=== PATIENT | male | born 1965 | race Caucasian/White ===

== ENCOUNTER 2022-05-21 11:15 | Inpatient (IN) ==
[2022-05-21] MEDS ORDERED: VANCOMYCIN CONSULT ACTIVE PRN ×2 (11:55→17:21)
[2022-05-21] MEDS ORDERED: VANCOMYCIN HCL 1,500 MG in SODIUM CHLORIDE 0.9% 500 ML IV STA (11:55)
[2022-05-21] MEDS ORDERED: CEFEPIME 2,000 MG/20 ML VIAL IV STA (11:55)
[2022-05-21] MEDS ORDERED: ACETAMINOPHEN 1,000 MG/100 ML VIAL IV STA (11:55)
[2022-05-21] MEDS ORDERED: SODIUM CHLORIDE 0.9% 1000ML 500 ML IV SCH (12:00)
--- NOTE | 2022-05-21 12:00 | Emergency Department Note ---
History of Present Illness General Chief complaint: Infection Stated complaint: CELLULITOUS IN LEG Time Seen by Provider: 05/21/22 11:49 History of Present Illness Maximum Pain Intensity: 7 This is a 56-year-old type I diabetic with history of hypertension as well as cardiac stent placement the presents to the emergency department referred by local urgent care accompanied by with complaints of "cellulitis in right leg". The patient notes intermittent fevers over the past week. notes that since this past Saturday his right lower extremity has been quite erythematous predominantly on the foot. No known trauma or injury. Patient has neuropathy at baseline with poor sensation from the knees distal in the bilateral lower extremities. Patient denies any chest pain or shortness of breath. No nausea or vomiting. Patient is unaware of any breaks in the integument to the right lower extremity causing the infection today. While at urgent care he did receive what he believes is IM ceftriaxone and then referred emergently here. Current pain 08/27. Patient is from the [facility] and currently visiting [id number] to celebrate his 89th birthday. Home Medications Medication Instructions Recorded Confirmed Type albuterol sulfate 2.5 mg/3 mL 2.5 mg inhalation Q4H PRN Wheezing 05/21/2205/21 History (0.083 %) solution for nebulization albuterol sulfate 90 mcg/actuation 2 puff inhalation DIRECTED PRN 05/21/22 05/21/22 History aerosol inhaler Shortness Of Breath Or Wheezing aspirin 81 mg tablet,delayed 81 mg PO DAILY 05/21/22 05/21/22 History release carvedilol 3.125 mg tablet 6.25 mg PO BID 05/21/22 05/21/22 History doxycycline hyclate 100 mg capsule 100 mg PO DAILY 05/21/22 05/21/22 History ergocalciferol (vitamin D2) 1,250 50,000 unit PO WK 05/21/22 05/21/22 History mcg (50,000 unit) capsule insulin aspart U-100 100 unit/mL 6 - 9 unit subcut TIDM 05/21/22 05/21/22 History (3 mL) subcutaneous pen (Novolog FlexPen U-100 Insulin aspart) insulin glargine 100 unit/mL (3 21 unit subcut PM 05/21/22 05/21/22 History mL) subcutaneous pen (Basaglar KwikPen U-100 Insulin) losartan 50 mg tablet 50 mg PO DAILY 05/21/22 05/21/22 History nitroglycerin 0.4 mg sublingual 0.4 mg sublingual DIRECTED PRN 05/21/22 05/21/22 History tablet Chest Pain prasugrel 10 mg tablet 10 mg PO DAILY 05/21/22 05/21/22 History sacubitril 49 mg-valsartan 51 mg 1 tab PO DAILY 05/21/22 05/21/22 History tablet (Entresto) Allergies Allergy/AdvReac Type Severity Reaction Status Date / Time atorvastatin AdvReac Unknown CONTRAINDICATED Verified 05/21/22 14:27 WITH OTHER MEDICATION empagliflozin AdvReac Unknown CONTRAINDICATED Verified 05/21/22 14:27 [From Jardiance] FOR TYPE I DIABETICS Past Med/Surg History Medical History Cellulitis HLD (hyperlipidemia) Hypertension Sepsis Type 1 diabetes mellitus Surgical History Hx of heart artery stent Social History Smoking Status: Never smoker Second Hand Exposure: No; Do You Dip or Chew Tobacco: Yes; Tobacco Cessation Education Requested by Patient: No Hx Alcohol Use: Yes Hx Substance Use: No Preferred Language: Pashto Communication Ability: Effective Thread Spooler Required: No Beliefs That Will Affect Care: None Current Living Situation: Spouse Other Information That Helps Us Care for You: No Feels Safe at Home: Yes Assistive Devices: Cane Review of Systems A total of 10 systems reviewed and were otherwise negative Physical Exam Vital Signs Vital Signs - 24 hr 05/21/22 11:27 05/21/22 12:01 05/21/22 12:06 Temperature 38.5 C H Temperature Source Temporal Artery Scan Pulse Rate 107 H 101 H Pulse Rate [Apical] Pulse Rate from SpO2 Sensor Pulse Rhythm [Apical] Respiratory Rate 18 Blood Pressure 97/55 L Blood Pressure [Right Arm] Blood Pressure Mean 69 Blood Pressure Mean [Right Arm] Blood Pressure Position [Right Arm] Pulse Oximetry 100 93 Oxygen Delivery Method Room Air Room Air Sepsis Recent Fever Within 48 Hours Yes Sepsis New/Unexplained Change in Mental Status No Sepsis Action Taken by Nursing No Action Required 05/21/22 12:09 05/21/22 12:50 05/21/22 12:01 Temperature 37.9 C H 37.5 C Temperature Source Oral Oral Pulse Rate 102 H Pulse Rate [Apical] 102 H 95 H Pulse Rate from SpO2 Sensor 104 H Pulse Rhythm [Apical] Regular Respiratory Rate 20 18 24 Blood Pressure 131/57 L Blood Pressure [Right Arm] 131/57 L 117/60 Blood Pressure Mean 81 Blood Pressure Mean [Right Arm] 81 79 Blood Pressure Position [Right Arm] Sitting Lying Pulse Oximetry 97 97 96 Oxygen Delivery Method Room Air Room Air Room Air Sepsis Recent Fever Within 48 Hours Sepsis New/Unexplained Change in Mental Status Sepsis Action Taken by Nursing 05/21/22 12:48 05/21/22 13:00 05/21/22 13:00 Temperature Temperature Source Pulse Rate 94 H 94 H Pulse Rate [Apical] Pulse Rate from SpO2 Sensor 92 H 93 H Pulse Rhythm [Apical] Respiratory Rate 22 22 Blood Pressure 117/60 114/59 L Blood Pressure [Right Arm] Blood Pressure Mean 79 77 Blood Pressure Mean [Right Arm] Blood Pressure Position [Right Arm] Pulse Oximetry 98 96 Oxygen Delivery Method Room Air Sepsis Recent Fever Within 48 Hours Sepsis New/Unexplained Change in Mental Status Sepsis Action Taken by Nursing 05/21/22 13:30 05/21/22 13:30 05/21/22 14:00 Temperature Temperature Source Pulse Rate 96 H Pulse Rate [Apical] Pulse Rate from SpO2 Sensor 95 H Pulse Rhythm [Apical] Respiratory Rate 20 Blood Pressure 116/62 114/62 Blood Pressure [Right Arm] Blood Pressure Mean 80 79 Blood Pressure Mean [Right Arm] Blood Pressure Position [Right Arm] Pulse Oximetry 95 Oxygen Delivery Method Sepsis Recent Fever Within 48 Hours Sepsis New/Unexplained Change in Mental Status Sepsis Action Taken by Nursing 05/21/22 14:00 05/21/22 14:30 05/21/22 14:30 Temperature Temperature Source Pulse Rate 88 90 Pulse Rate [Apical] Pulse Rate from SpO2 Sensor 87 88 Pulse Rhythm [Apical] Respiratory Rate 22 20 Blood Pressure 111/56 L Blood Pressure [Right Arm] Blood Pressure Mean 74 Blood Pressure Mean [Right Arm] Blood Pressure Position [Right Arm] Pulse Oximetry 98 98 Oxygen Delivery Method Room Air Room Air Sepsis Recent Fever Within 48 Hours Sepsis New/Unexplained Change in Mental Status Sepsis Action Taken by Nursing VITAL SIGNS - Vital signs and triage nursing notes were reviewed. Hypotensive, tachycardic, febrile. GENERAL -56-year-old male appearing his stated age who is in no acute distress. Communicates well with provider and answers questions appropriately. SKIN - Without rashes. No meningeal or petechial rash. HEAD - NC/AT. EYES - PERRL with EOMI bilaterally. Sclera anicteric. EARS - No deformities of external structures noted on gross examination bilaterally. NOSE - Midline and without cyanosis. No epistaxis or purulent drainage noted. MOUTH/OROPHARYNX - Without perioral cyanosis. NECK - Neck with FROM.No nuchal rigidity. LUNGS - Chest wall symmetric without accessory muscle use, intercostals retractions, or central cyanosis. Normal vesicular breath sounds CTA B/L. No wh eezes, rales, or rhonchi appreciated. CARDIAC -tachycardic and regular with S1/S2. No murmur, rubs, or gallops appreciated. ABDOMEN - Abdominal contour normal without pulsations or visible masses. BS normoactive all four quadrants. No tenderness, palpable masses, hepatosplenomegaly, or ascites noted. EXTREMITIES - No clubbing or peripheral cyanosis. Left lower extremity appropriately warm and well-perfused without deficit. No signs of infection. No erythema or edema. Right lower extremity from the proximal tib/fib region tracking distally into the foot and toes there is significant erythema and profound circumferential edema to the right foot with yellowish bullae formation overlying the mid plantar aspect of the right foot. Small 2 cm in diameter darkish blister formation to the medial MTP joint region. Decreased sensation to the bilateral lower extremities. NEUROLOGIC - Cranial nerves II through XII grossly intact. PSYCH - A&Ox3 and cooperates fully with examiner. Pt is very pleasant and interacts well with examiner. Course Administered Medications Carvedilol (Carvedilol 6.25 Mg Tab) 6.25 mg PO BID DEVONTE Stop: 06/20/22 20:59 Last Admin: 05/21/22 20:26 Dose: 6.25 mg Documented By: [id number] Heparin Sodium (Porcine) (Heparin Sod 5,000 Unit/0.5 Ml Vial) 5,000 units SQ Q12 DEVONTE Stop: 06/20/22 20:59 Last Admin: 05/21/22 20:25 Dose: 5,000 units Documented By: [id number] Sodium Chloride (Nss 1000ml) 1,000 mls @ 60 mls/hr IV .[id number] DEVONTE Stop: 05/23/22 01:43 Last Admin: 05/21/22 17:23 Dose: 60 mls/hr Documented By: SABA Insulin Aspart (Insulin Aspart Per Unit Charge) 0 units SC ACHS DEVONTE Stop: 06/20/22 16:59 Last Admin: 05/21/22 21:07 Dose: 6 units Documented By: [id number] Co-signed By: ILIANA Admin: 05/21/22 17:55 Dose: 8 units Documented By: SABA Co-signed By: MICH Discontinued Medications Fentanyl Citrate (Fentanyl Citrate Pf 100 Mcg/2 Ml Vial) 50 mcg IV NOW STA Stop: 05/21/22 14:03 Last Admin: 05/21/22 14:12 Dose: 50 mcg Documented By: JESU Vancomycin HCl 1,500 mg/ (Sodium Chloride) 530 mls @ 200 mls/hr IV NOW STA Stop: 05/21/22 14:33 Last Infusion: 05/21/22 15:40 Dose: 0 mls/hr Documented By: Admin: 05/21/22 12:49 Dose: 200 mls/hr Documented By: EJSU Cefepime HCl (Maxipime) 2,000 mg in 20 mls @ 5 mls/min IV NOW STA; Protocol Stop: 05/21/22 11:58 Last Admin: 05/21/22 12:47 Dose: 5 mls/min Documented By: JESU Acetaminophen (Ofirmev) 1,000 mg in 100 mls @ 400 mls/hr IV NOW STA Stop: 05/21/22 12:09 Last Infusion: 05/21/22 12:51 Dose: 0 mls/hr Documented By: Admin: 05/21/22 12:19 Dose: 400 mls/hr Documented By: JESU Sodium Chloride (Nss 1000ml) 1,000 mls @ 999 mls/hr IV .Q1H1M DEVONTE Stop: 05/21/22 14:00 Last Infusion: 05/21/22 15:39 Dose: 0 mls/hr Documented By: Admin: 05/21/22 13:46 Dose: 999 mls/hr Documented By: Infusion: 05/21/22 13:32 Dose: 0 mls/hr Documented By: Admin: 05/21/22 12:19 Dose: 999 mls/hr Documented By: JESU Sodium Chloride (Nss 1000ml) 500 mls @ 999 mls/hr IV .Q31M DEVONTE Stop: 05/21/22 12:30 Last Infusion: 05/21/22 13:32 Dose: 0 mls/hr Documented By: Admin: 05/21/22 12:49 Dose: 999 mls/hr Documented By: JESU Insulin Glargine (Lantus Per Unit Charge) 15 units SQ NOW ONE Stop: 05/21/22 17:16 Last Admin: 05/21/22 17:55 Dose: 15 units Documented By: SABA Co-signed By: MICH Critical Care Time I have personally spent about 45 minutes of critical care time in the direct management of this patient. This includes bedside care, interpretation of diagnostic studies, and testing, discussion with consultants, patient, and family members, and other required patient management activities. This 45 minutes is in excess of all separately billable procedures. Medical Decision Making Laboratory Data 05/21/22 11:43 05/21/22 11:43 Lab Results 05/21/22 05/21/22 05/21/22 Range/Units 11:43 11:43 11:43 WBC 20.86 H (4.8-10.8) K/ul RBC 3.75 L (4.70-6.10) M/uL Hgb 9.4 L (14.0-18.0) g/dl Hct 29.2 L (42.0-52.0) % MCV 77.9 L (80.0-100.0) fL MCH 25.1 (25.0-34.0) pg MCHC 32.2 (32.0-36.0) g/dL RDW Std Deviation 41.5 (36.4-46.3) fL RDW Coeff of Bianca 14.6 H (11.5-14.5) % Plt Count 407 H (130-400) K/uL MPV 10.3 (9.4-12.4) fL Immature Gran % (Auto) 1.3 % Neut % (Auto) 93.2 % Lymph % (Auto) 2.0 % [place] % (Auto) 3.2 % Eos % (Auto) 0.1 % Baso % (Auto) 0.2 % Neut # (Auto) 19.45 H (1.40-6.50) K/uL Lymph # (Auto) 0.41 L (1.2-3.4) K/uL [place] # (Auto) 0.66 H (0.11-0.59) K/uL Eos # (Auto) 0.02 (0-0.50) K/uL Baso # (Auto) 0.05 (0-0.2) K/uL Immature Gran # (Auto) 0.27 H (0.01-0.20) K/uL Toxic Granulation 1+ Dohle Bodies 1+ Acanthocytes (Spur) 1+ ESR (0-20) mm/hr PT 12.8 H (9.0-12.0) Seconds INR 1.2 H (0.9-1.1) APTT 29.3 (21.0-31.0) Seconds PTT Ratio 1.1 VBG pH (7.36-7.41) VBG pCO2 (38-50) mmHg VBG pO2 mmHg VBG HCO3 mmol/L VBG O2 Saturation % VBG Base Excess mEq/L Sodium 131 L (136-145) mmol/L Potassium 3.8 (3.5-5.1) mmol/L Chloride 97 L (98-107) mmol/L Carbon Dioxide 21 (21-32) mmol/L Anion Gap 13 H (3-11) BUN 45 H (6-23) mg/dl Creatinine 2.36 H (0.6-1.4) mg/dl Est Cr Clr Drug Dosing 34.6 ml/min Est GFR ( Amer) 34.1 ml/min Est GFR (Non-Af Amer) 29.5 ml/min BUN/Creatinine Ratio 19.1 (10-20) Glucose 203 H (70-99(Fasting)) mg/dl Lactate (0.4-2.0) mmol/L Uric Acid 8.1 H (2.6-7.2) mg/dl Calcium 8.3 L (8.6-10.3) mg/dl Magnesium 1.8 (1.7-2.4) mg/dl Total Bilirubin 0.6 (0.2-1.0) mg/dl Direct Bilirubin 0.3 H (0-0.2) mg/dl AST 66 H (13-39) U/L ALT 85 H (7-52) U/L Alkaline Phosphatase 396 H (34-104) U/L Troponin I High Sens 108.1 H* (0-20) pg/ml C-Reactive Protein 31.43 H (0-0.5) mg/dl Total Protein 7.5 (6.0-8.3) gm/dl Albumin 3.0 L (3.4-5.0) gm/dl Procalcitonin (0-0.5) ng/ml SARS-CoV-2 (PCR) (Negative) Influenza Type A (PCR) (Neg) Influenza Type B (PCR) (Neg) RSV (RT-PCR) (Neg) Blood Type Antibody Screen 05/21/22 05/21/22 05/21/22 Range/Units 11:43 11:43 11:45 WBC (4.8-10.8) K/ul RBC (4.70-6.10) M/uL Hgb (14.0-18.0) g/dl Hct (42.0-52.0) % MCV (80.0-100.0) fL MCH (25.0-34.0) pg MCHC (32.0-36.0) g/dL RDW Std Deviation (36.4-46.3) fL RDW Coeff of Bianca (11.5-14.5) % Plt Count (130-400) K/uL MPV (9.4-12.4) fL Immature Gran % (Auto) % Neut % (Auto) % Lymph % (Auto) % [place] % (Auto) % Eos % (Auto) % Baso % (Auto) % Neut # (Auto) (1.40-6.50) K/uL Lymph # (Auto) (1.2-3.4) K/uL [place] # (Auto) (0.11-0.59) K/uL Eos # (Auto) (0-0.50) K/uL Baso # (Auto) (0-0.2) K/uL Immature Gran # (Auto) (0.01-0.20) K/uL Toxic Granulation Dohle Bodies Acanthocytes (Spur) ESR 91 H (0-20) mm/hr PT (9.0-12.0) Seconds INR (0.9-1.1) APTT (21.0-31.0) Seconds PTT Ratio VBG pH (7.36-7.41) VBG pCO2 (38-50) mmHg VBG pO2 mmHg VBG HCO3 mmol/L VBG O2 Saturation % VBG Base Excess mEq/L Sodium (136-145) mmol/L Potassium (3.5-5.1) mmol/L Chloride (98-107) mmol/L Carbon Dioxide (21-32) mmol/L Anion Gap (3-11) BUN (6-23) mg/dl Creatinine (0.6-1.4) mg/dl Est Cr Clr Drug Dosing ml/min Est GFR ( Amer) ml/min Est GFR (Non-Af Amer) ml/min BUN/Creatinine Ratio (10-20) Glucose (70-99(Fasting)) mg/dl Lactate 3.2 H* (0.4-2.0) mmol/L Uric Acid (2.6-7.2) mg/dl Calcium (8.6-10.3) mg/dl Magnesium (1.7-2.4) mg/dl Total Bilirubin (0.2-1.0) mg/dl Direct Bilirubin (0-0.2) mg/dl AST (13-39) U/L ALT (7-52) U/L Alkaline Phosphatase (34-104) U/L Troponin I High Sens (0-20) pg/ml C-Reactive Protein (0-0.5) mg/dl Total Protein (6.0-8.3) gm/dl Albumin (3.4-5.0) gm/dl Procalcitonin 4.59 H (0-0.5) ng/ml SARS-CoV-2 (PCR) (Negative) Influenza Type A (PCR) (Neg) Influenza Type B (PCR) (Neg) RSV (RT-PCR) (Neg) Blood Type Antibody Screen 05/21/22 05/21/22 05/21/22 Range/Units 12:12 12:12 12:52 WBC (4.8-10.8) K/ul RBC (4.70-6.10) M/uL Hgb (14.0-18.0) g/dl Hct (42.0-52.0) % MCV (80.0-100.0) fL MCH (25.0-34.0) pg MCHC (32.0-36.0) g/dL RDW Std Deviation (36.4-46.3) fL RDW Coeff of Bianca (11.5-14.5) % Plt Count (130-400) K/uL MPV (9.4-12.4) fL Immature Gran % (Auto) % Neut % (Auto) % Lymph % (Auto) % [place] % (Auto) % Eos % (Auto) % Baso % (Auto) % Neut # (Auto) (1.40-6.50) K/uL Lymph # (Auto) (1.2-3.4) K/uL [place] # (Auto) (0.11-0.59) K/uL Eos # (Auto) (0-0.50) K/uL Baso # (Auto) (0-0.2) K/uL Immature Gran # (Auto) (0.01-0.20) K/uL Toxic Granulation Dohle Bodies Acanthocytes (Spur) ESR (0-20) mm/hr PT (9.0-12.0) Seconds INR (0.9-1.1) APTT (21.0-31.0) Seconds PTT Ratio VBG pH 7.38 (7.36-7.41) VBG pCO2 38 (38-50) mmHg VBG pO2 21 mmHg VBG HCO3 23 mmol/L VBG O2 Saturation < 60.0 % VBG Base Excess -2.4 mEq/L Sodium (136-145) mmol/L Potassium (3.5-5.1) mmol/L Chloride (98-107) mmol/L Carbon Dioxide (21-32) mmol/L Anion Gap (3-11) BUN (6-23) mg/dl Creatinine (0.6-1.4) mg/dl Est Cr Clr Drug Dosing ml/min Est GFR ( Amer) ml/min Est GFR (Non-Af Amer) ml/min BUN/Creatinine Ratio (10-20) Glucose (70-99(Fasting)) mg/dl Lactate (0.4-2.0) mmol/L Uric Acid (2.6-7.2) mg/dl Calcium (8.6-10.3) mg/dl Magnesium (1.7-2.4) mg/dl Total Bilirubin (0.2-1.0) mg/dl Direct Bilirubin (0-0.2) mg/dl AST (13-39) U/L ALT (7-52) U/L Alkaline Phosphatase (34-104) U/L Troponin I High Sens (0-20) pg/ml C-Reactive Protein (0-0.5) mg/dl Total Protein (6.0-8.3) gm/dl Albumin (3.4-5.0) gm/dl Procalcitonin (0-0.5) ng/ml SARS-CoV-2 (PCR) NEGATIVE (Negative) Influenza Type A (PCR) Negative (Neg) Influenza Type B (PCR) Negative (Neg) RSV (RT-PCR) Negative (Neg) Blood Type B Positive Antibody Screen NEGATIVE Imaging Data Radiologist's Impression: Chest X-Ray 05/21/22 11:56 XR chest 1V portable CLINICAL HISTORY: Sepsis. COMPARISON STUDY: No previous studies for comparison. FINDINGS: There is no pneumothorax or pleural effusion. There is no consolidation to suggest pneumonia. Moderate cardiomegaly is noted. No evidence for pulmonary edema. IMPRESSION: No acute cardiopulmonary findings. Cardiomegaly. ACT 112: Negative or not required by law. Electronically signed by: Matthew Conley M.D. 05/21/2022 1:[address] 05/21/22 12:04 CT foot RT wo con HISTORY: 56 years-old Male Sepsis, infected RLE acute sepsis with pain of the right lower extremity COMPARISON: CT right ankle, tibia and fibula studies of same day TECHNIQUE: Multiple axial CT images of the right foot were obtained without the use of IV contrast. A dose lowering technique was used consistent with the principals of ALARA. FINDINGS: Moderate diffuse subcutaneous edema. Arterial calcifications. There is at least mild atrophy of the intrinsic musculature. Tendons and ligaments are suboptimally evaluated by CT technique. No gross ligamentous or tendinous injury identified. No drainable fluid collection. Enthesophytes of the calcaneus. Demineralized appearance of the bones. No acute fracture, dislocation or osseous erosion. The distal toes only partially imaged on the axial series. Multifocal osteoarthritis, moderate within the midfoot. Midfoot alignment is anatomic. IMPRESSION: 1. No acute osseous abnormality. 2. Moderate diffuse subcutaneous edema without drainable fluid collection. Find ings may represent cellulitis, lymphedema or venous stasis. ACT 112: Negative or not required by law. The above report was generated using voice recognition software. It may contain grammatical, syntax or spelling errors. Electronically signed by: Iván Ochoa M.D. 05/21/2022 2:[address] 05/21/22 12:04 CT SCAN OF THE RIGHT ANKLE WITHOUT IV CONTRAST CLINICAL HISTORY: Sepsis. Right foot infection. COMPARISON STUDY: No priors. TECHNIQUE: CT scan of the right ankle performed from the distal tibia and fibula to the base of the foot. Images are reviewed in the axial, sagittal, and coronal planes. IV contrast was not administered for this examination. A dose lowering technique was utilized adhering to the principles of ALARA. No definitive interpretation is suboptimal without plain film correlate. FINDINGS: The skeletal structures are heterogeneously osteopenic. No fracture is identified. Mild arthritic change is noted in the partially visualized midfoot. There is no bony erosion or periostitis. The ankle mortise is intact. No new degenerative change at the tibiotalar articulation. There is a dorsal calcaneal enthesophyte. No ankle joint effusion is identified. No lytic or blastic lesion is seen. Imaged portions of the Achilles tendon appear intact. Soft tissue edema and subcutaneous fluid is seen around the right ankle and in the visualized hindfoot. No organized/drainable fluid collection is seen to indicate abscess on these unenhanced images. There is atherosclerotic calcification of the regional arteries. The regional musculature is atrophic. No soft tissue gas is seen. IMPRESSION: 1. No acute bony abnormality is identified. 2. Soft tissue edema throughout the visualized right lower extremity is typical for cellulitis. Correlate clinically. 3. No organized fluid collection is seen to indicate abscess. 4. No soft tissue gas is seen. ACT 112: Negative or not required by law. Dictated: 05/21/2022 1:08 PM Transcribed: 05/21/2022 1:21 PM Hermes [id number] [facility] [id number] Electronically signed by: Ayush Christopher M.D. 05/21/2022 1:[address] 05/21/22 12:05 CT OF THE RIGHT TIBIA AND FIBULA WITHOUT CONTRAST CLINICAL HISTORY: Sepsis, infected RLE. COMPARISON STUDY: No previous studies for comparison. TECHNIQUE: Axial images of the right tibia and fibula/right lower leg were obtained without IV contrast. Sagittal and coronal reconstructions were viewed. Automated exposure control was utilized for the study. A dose lowering technique was utilized adhering to the principles of ALARA. FINDINGS: Please note that the CTs of the right ankle and foot will be reported separately. There is no fracture within the right tibia or fibula. No CT evidence for acute osteomyelitis. Note is made of skin thickening and subcutaneous edema of the right lower leg, most pronounced medially. No associated fluid collection is identified on this unenhanced exam. No soft tissue gas. There is no significant fascial fluid. No intramuscular fluid collection is identified on unenhanced exam. There is extensive vascular calcification within the right calf vessels. There is no right knee joint effusion. IMPRESSION: 1. Skin thickening and subcutaneous fluid of the right lower leg suggestive of cellulitis. No fluid collection on unenhanced exam to suggest abscess. 2. No soft tissue gas. No evidence for acute osteomyelitis within the right tibia or fibula. ACT 112: Negative or not required by law. Electronically signed by: Matthew Conley M.D. 05/21/2022 1:32 PM MDM Narrative Patient was seen and evaluated as above in room C04. Review was performed of triage nursing notes and vital signs. After obtaining a thorough history and physical examination the above work up was performed. Patient presents to us today for assessment of infection to the right leg. On arrival the patient is septic by vital signs and appearance in the setting of right lower extremity infection. Options of care were discussed with the patient. IV access was established and labs were drawn. Septic orders/protocol was placed. Appropriate antibiotics and fluid resuscitation was ordered by ED attending physician that I also discussed the case with on presentation. Labs here reveal leukocytosis at 20.86. There is anemia noted with hemoglobin of 9.4. There is elevation of ESR and CRP. INR 1.2. Mild hyponatremia 131. There is evidence of RAMON with creatinine of 2.36 and BUN of 45. Glucose 203. Uric acid 8.1. AST and ALT are elevated. Alk phos elevated. Troponin is elevated at 108. CRP 31.43. Procalcitonin elevated at 4.59. There is lactate elevation at 3.2. After the patient's fluid resuscitation lactate was rechecked and found to be within normal limits. The patient also was reevaluated several times throughout his stay and following the fluid resuscitation was neurovascularly intact with good cap refill and clear lung sounds. No dyspnea. No signs of volume overload. Patient's upper respiratory panel was negative. CT imaging was obtained of the right tib/fib as well as ankle and right foot. Contrast was not used noting RAMON. There is no soft tissue gas noted. No organized fluid collection to suggest abscess. I discussed case with the on-call hospitalist service. I also discussed this with Dr. Ya of orthopedics. At this time there is no surgical intervention indicated. I do believe the patient would benefit from further evaluation and management in the inpatient setting. Please refer to further documentation regarding his stay. EKG reveals sinus tachycardia at a rate of 100 bpm. There is no ST elevation. It is important to note that the patient's troponin is not felt to be related to ACS, rather is felt to be secondary to his septic state. In the evaluation and treatment of this patient the following differential diagnoses were entertained: Cellulitis, abscess, DKA, osteomyelitis, bacteremia, sepsis, among others Impression & Plan Sepsis, Cellulitis Discharge Plan Visit Data Chief Complaint: Infection Stated Complaint: CELLULITOUS IN LEG ED Provider: Jarocho Pearson ED Midlevel Provider: Wyatt Nicole Discharge Problem: Sepsis, Cellulitis Patient Disposition: Admitted As Inpatient Condition: Fair Discharge Instructions Interventions: ED Discharge Assessment Last Done: 05/21/22 16:13
--- NOTE | 2022-05-21 12:04 | Emergency Department Note ---
ED Visit Note Physician Evaluation Note: I have personally evaluated and examined this patient. I agree with assessment and plan of Wyatt Nicole PA-C. 56-year-old gentleman with history of diabetes amongst other medical issues and recurrent infections of the right leg arrives for evaluation of worsening right leg infection. Rapidly worsening over the last few days. Was seen in urgent care and sent to ER for evaluation. Patient arrives septic with hypotension. Septic work-up initiated 2 and half liters fluid ordered along with empiric cefepime and vancomycin. Will get CT to rule out necrotizing fasciitis and then involve hospitalist and surgery for discussion. I will note that following fluid resuscitation patient vastly improved. He is breathing comfortably and vitals have normalized nicely. Jarocho Pearson MD
[2022-05-21] MEDS: SODIUM CHLORIDE 0.9% 1000ML 1,000 ML IV SCH ×3 (12:19→17:23)
[2022-05-21 12:23] LABS: Hematocrit (blood only) 29.2 % (42.0-52.0); Hemoglobin 9.4 g/dl (14.0-18.0); Mean Corpuscular Hemoglobin 25.1 pg (25.0-34.0); Mean Corpuscular Hgb Conc 32.2 g/dL (32.0-36.0); Mean Corpuscular Volume 77.9 fL (80.0-100.0); Mean Platelet Volume 10.3 fL (9.4-12.4); Platelet Count 407 K/uL (130-400); RDW Coefficient of Variation 14.6 % (11.5-14.5); RDW Standard Deviation 41.5 fL (36.4-46.3); Red Blood Count 3.75 M/uL (4.70-6.10); White Blood Count 20.86 K/ul (4.8-10.8)
[2022-05-21 12:40] LABS: BUN Creatinine Ratio 19.1 (10-20); Bilirubin Direct 0.3 mg/dl (0-0.2); Bilirubin,Total 0.6 mg/dl (0.2-1.0); Calcium 8.3 mg/dl (8.6-10.3); Creatinine Clr Calc Pharmacy 34.6 ml/min; Est GFR (African American) 34.1 ml/min; Est GFR (Non-African American) 29.5 ml/min; Magnesium 1.8 mg/dl (1.7-2.4); Potassium 3.8 mmol/L (3.5-5.1); Total Protein 7.5 gm/dl (6.0-8.3); Uric Acid 8.1 mg/dl (2.6-7.2)
[2022-05-21 12:44] LABS: Acanthocytes 1+; Basophils # (auto) 0.05 K/uL (0-0.2); Basophils % (auto) 0.2 %; Dohle Bodies 1+; Eosinophils # (auto) 0.02 K/uL (0-0.50); Eosinophils % (auto) 0.1 %; Immature Granulocytes # (auto) 0.27 K/uL (0.01-0.20); Immature Granulocytes % (auto) 1.3 %; Lymphocytes # (auto) 0.41 K/uL (1.2-3.4); Monocytes # (auto) 0.66 K/uL (0.11-0.59); Monocytes % (auto) 3.2 %; Neutrophils # (auto) 19.45 K/uL (1.40-6.50); Neutrophils % (auto) 93.2 %; Toxic Granulation 1+
[2022-05-21 12:47] LABS: Base Excess VBG -2.4 mEq/L; HCO3 VBG 23 mmol/L; Oxygen Saturation VBG < 60.0 %; PCO2 VBG 38 mmHg (38-50); PO2 VBG 21 mmHg; pH VBG 7.38 (7.36-7.41)
[2022-05-21 12:48] LABS: Troponin I High Sensitivity 108.1 pg/ml (0-20)
[2022-05-21 12:51] LABS: INR 1.2 (0.9-1.1); Partial Thromboplastin Ratio 1.1; Partial Thromboplastin Time 29.3 Seconds (21.0-31.0); Prothrombin Time 12.8 Seconds (9.0-12.0)
[2022-05-21 12:59] LABS: C Reactive Protein 31.43 mg/dl (0-0.5)
--- NOTE | 2022-05-21 13:34 | XRay Report ---
XR chest 1V portable CLINICAL HISTORY: Sepsis. COMPARISON STUDY: No previous studies for comparison. FINDINGS: There is no pneumothorax or pleural effusion. There is no consolidation to suggest pneumoni a. Moderate cardiomegaly is noted. No evidence for pulmonary edema. IMPRESSION: No acute cardiopulmonary findings. Cardiomegaly. ACT 112: Negative or not required by law. Electronically signed by: Matthew Conley M.D. 05/21/2022 1:33 PM
--- NOTE | 2022-05-21 13:34 | CT Scan Report ---
CT OF THE RIGHT TIBIA AND FIBULA WITHOUT CONTRAST CLINICAL HISTORY: Sepsis, infected RLE. COMPARISON STUDY: No previous studies for comparison. TECHNIQUE: Axial images of the right tibia and fibula/right lower leg were obtained without IV contra st. Sagittal and coronal reconstructions were viewed. Automated exposure control was utilized for the study. A dose lowering technique was utilized adhering to the principles of ALARA. FINDINGS: Please note that the CTs of the right ankle and foot will be reported separately. There is no fracture within the right tibia or fibula. No CT evidence for acute osteomyelitis. Note is made of skin thickening and subcutaneous edema of the right lower leg, most pronounced medially. No associat ed fluid collection is identified on this unenhanced exam. No soft tissue gas. There is no significan t fascial fluid. No intramuscular fluid collection is identified on unenhanced exam. There is extensi ve vascular calcification within the right calf vessels. There is no right knee joint effusion. IMPRESSION: 1. Skin thickening and subcutaneous fluid of the right lower leg suggestive of cellulitis. No fluid c ollection on unenhanced exam to suggest abscess. 2. No soft tissue gas. No evidence for acute osteomyelitis within the right tibia or fibula. ACT 112: Negative or not required by law. Electronically signed by: Matthew Conley M.D. 05/21/2022 1:32 PM
--- NOTE | 2022-05-21 13:40 | CT Scan Report ---
CT SCAN OF THE RIGHT ANKLE WITHOUT IV CONTRAST CLINICAL HISTORY: Sepsis. Right foot infection. COMPARISON STUDY: No priors. TECHNIQUE: CT scan of the right ankle performed from the distal tibia and fibula to the base of the f oot. Images are reviewed in the axial, sagittal, and coronal planes. IV contrast was not administered for this examination. A dose lowering technique was utilized adhering to the principles of ALARA. No definitive interpretation is suboptimal without plain film correlate. FINDINGS: The skeletal structures are heterogeneously osteopenic. No fracture is identified. Mild art hritic change is noted in the partially visualized midfoot. There is no bony erosion or periostitis. The ankle mortise is intact. No new degenerative change at the tibiotalar articulation. There is a do rsal calcaneal enthesophyte. No ankle joint effusion is identified. No lytic or blastic lesion is see n. Imaged portions of the Achilles tendon appear intact. Soft tissue edema and subcutaneous fluid is seen around the right ankle and in the visualized hindfoot. No organized/drainable fluid collection i s seen to indicate abscess on these unenhanced images. There is atherosclerotic calcification of the regional arteries. The regional musculature is atrophic. No soft tissue gas is seen. IMPRESSION: 1. No acute bony abnormality is identified. 2. Soft tissue edema throughout the visualized right lower extremity is typical for cellulitis. Corre late clinically. 3. No organized fluid collection is seen to indicate abscess. 4. No soft tissue gas is seen. ACT 112: Negative or not required by law. Dictated: 05/21/2022 1:08 PM Transcribed: 05/21/2022 1:21 PM Hermes [id number] TRINA_Diogo [id number] Electronically signed by: Ayush Christopher M.D. 05/21/2022 1:39 PM
--- NOTE | 2022-05-21 13:43 | Electrocardiogram Report ---
Test Reason : Blood Pressure : / mmHG Vent. Rate : 101 BPM Atrial Rate : 101 BPM P-R Int : 144 ms QRS Dur : 074 ms QT Int : 322 ms P-R-T Axes : 043 055 097 degrees QTc Int : 417 ms Poor data quality, interpretation may be adversely affected Sinus tachycardia Nonspecific T wave abnormality Lateral leads Abnormal ECG No previous ECGs available Confirmed by Eduardo Dunn ([id number]) on 05/21/2022 1:43:00 PM Referred By: Confirmed By:Eduardo Dunn
[2022-05-21 14:00] LABS: Influenza A virus by PCR Negative (Neg); Influenza B virus by PCR Negative (Neg); RSV by PCR Negative (Neg); SARS CoV2 RNA(COVID-19) Ceph NEGATIVE (Negative)
[2022-05-21] MEDS ORDERED: fentaNYL citrate PF 100 MCG/2 ML VIAL IV STA (14:02)
--- NOTE | 2022-05-21 14:14 | CT Scan Report ---
CT foot RT wo con HISTORY: 56 years-old Male Sepsis, infected RLE acute sepsis with pain of the right lower extremity COMPARISON: CT right ankle, tibia and fibula studies of same day TECHNIQUE: Multiple axial CT images of the right foot were obtained without the use of IV contrast. A dose lowering technique was used consistent with the principals of AILYAH. FINDINGS: Moderate diffuse subcutaneous edema. Arterial calcifications. There is at least mild atrophy of the i ntrinsic musculature. Tendons and ligaments are suboptimally evaluated by CT technique. No gross liga mentous or tendinous injury identified. No drainable fluid collection. Enthesophytes of the calcaneus . Demineralized appearance of the bones. No acute fracture, dislocation or osseous erosion. The dista l toes only partially imaged on the axial series. Multifocal osteoarthritis, moderate within the midf oot. Midfoot alignment is anatomic. IMPRESSION: 1. No acute osseous abnormality. 2. Moderate diffuse subcutaneous edema without drainable fluid collection. Findings may represent fannie lulitis, lymphedema or venous stasis. ACT 112: Negative or not required by law. The above report was generated using voice recognition software. It may contain grammatical, syntax o r spelling errors. Electronically signed by: Iván Ochoa M.D. 05/21/2022 2:12 PM
[2022-05-21] MEDS ORDERED: ACETAMINOPHEN 325 MG TAB PO PRN (14:56)
[2022-05-21] MEDS ORDERED: MAGNESIUM HYDROXIDE SUSP 30 ML UDC PO PRN (14:56)
[2022-05-21] MEDS ORDERED: POLYETHYLENE (MIRALAX) 17 GM PACK PO PRN (14:56)
[2022-05-21] MEDS ORDERED: ALUMINUM/MAGNESIUM SUSP 30 ML UDC PO PRN (14:56)
[2022-05-21] MEDS ORDERED: ONDANSETRON INJ 2 MG/ML 2 ML VIAL IV PRN (14:56)
--- NOTE | 2022-05-21 15:08 | History & Physical Report ---
Date of Service May 21, 2022 Assessment & Plan (1) Sepsis: (2) Cellulitis: (3) Hx of heart artery stent: (4) Type 1 diabetes mellitus: (5) HLD (hyperlipidemia): (6) Hypertension: Plan 56 y/o with complex unresolved cellulitis; complicated with delayed wound healing with T1DM. Initial cellulitis dx 02/08 and completed oral abx course. Right foot CT and lower extremity CT: *1. No acute bony abnormality is identified. *2. Soft tissue edema throughout the visualized right lower extremity is typical for cellulitis. *3. No organized fluid collection is seen to indicate abscess. *4. No soft tissue gas is seen. No osteomyelitis. Ortho consult placed; no indication for sx at this time. ID consult; cont IV Cefepime and Vanco. Wound and blood cx sent. Trend labs. Severe Sepsis POA: Cellulitis: RAMON secondary to Sepsis: Hyponatremia: In ED hypotensive and responded to 2.5 LNSB. Leukocytosis WBC 20.86, Na+ 131, Creatinine 2.36. unknown baseline. Right Foot CT and lower extremity CT: *1. No acute bony abnormality is identified. *2. Soft tissue edema throughout the visualized right lower extremity is typical for cellulitis. *3. No organized fluid collection is seen to indicate abscess. *4. No soft tissue gas is seen. No osteomyelitis. Ortho consult placed; no indication for sx at this time Continue Cefepime and Vanco; adjust as necessary based on cultures Infectious Disease consult Wound and blood cultures sent Lactate 3.2; suspect will trend down with fluid resuscitation Na+ 131; suspect increase with fluid resuscitation; will trend BMP CAD s/p stent placement: stent placement x2 in 11/2021 in [place] takes baby ASA and Prasugrel; continue INR 1.2 Troponin elevated 108; will trend x1; do not suspect ACS; rather ischemic demand d/t sepsis Diabetes Mellitus, type 1: uses Dexcom monitor. sugars run 200-294 over last 48 hours Uses SSI and Lantus at home; typically 8-10 units in AM and 21 units of Lantus Nightly Pt removed Dexcom monitor; will place on SSI here with ACHS FSBS Check A1C in AM HTN: Hypotensive in ED; takes Enestro, Carvedolol, and Losartan; hold for now Resume in AM Hold Enestro until renal function improves Disposition: PCP: In [place] Code status: Full Code VTE Prophylaxis: Heparin SQ I spent a total of 88 minutes coordinating, documenting, and providing care for this patient excluding time spent in the performance of separately billed services. All of the aforementioned completed while collaborating with the assigned attending physician for a full treatment plan. Please see their addendum for further details. History of Present Illness Chief Complaint: leg pain Primary Care Provider: Melany Sidhu MD Mr. Allison is a 56 year old male that presented to the [facility] after r ecommendations from [facility] for further evaluation of recurrent right lower leg infection that has been worsening over the past 5 days despite Advil use and elevation. Rocephin 1 G given at urgent care. Patient leg with + pain and tenderness with induration and weeping. Numerous areas of skin sloughing. Plantar aspect with thick yellow bullae. (-) crepitus. (+) skin sloughing and ulcers from ankle to foot. Was previously diagnosed with cellulitis in 02/08 and completed antibiotics course. Patient is visiting [place] from [place] where he lives permanently with his . Patient did grow up in [place] and was here visiting his [id number] for his 89th birthday when he started to have fever and chills over the past few days along with increased pain with ambulation in his right lower extremity. Patient has a PMH that includes: IDDM2, HLD, and HTN. On arrival to ED, patient was hypotensive and responded to 2.5 LNSB. Leukocytosis WBC 20.86, Hgb 9.4, Na+ 131, Creatinine 2.36. Right Foot CT and lower extremity CT were performed in the ED to assess for necrotizing fasciitis. Results indicate: 1. No acute bony abnormality is identified. 2. Soft tissue edema throughout the visualized right lower extremity is typical for cellulitis. 3. No organized fluid collection is seen to indicate abscess. 4. No soft tissue gas is seen. No osteomyelitis. Patient will be admitted for further evaluation and management. Please see A/P for further details. Allergies Allergy/AdvReac Type Severity Reaction Status Date / Time atorvastatin AdvReac Unknown CONTRAINDICATED Verified 05/21/22 14:27 WITH OTHER MEDICATION empagliflozin AdvReac Unknown CONTRAINDICATED Verified 05/21/22 14:27 [From Jardiance] FOR TYPE I DIABETICS Home Medications Medication Instructions Recorded Confirmed Type albuterol sulfate 2.5 mg/3 mL 2.5 mg inhalation Q4H PRN Wheezing 05/21/22 05/21/22 History (0.083 %) solution for nebulization albuterol sulfate 90 mcg/actuation 2 puff inhalation DIRECTED PRN 05/21/22 05/21/22 History aerosol inhaler Shortness Of Breath Or Wheezing aspirin 81 mg tablet,delayed 81 mg PO DAILY 05/21/22 05/21/22 History release carvedilol 3.125 mg tablet 6.25 mg PO BID 05/21/22 05/21/22 History doxycycline hyclate 100 mg capsule 100 mg PO DAILY 05/21/22 05/21/22 History ergocalciferol (vitamin D2) 1,250 50,000 unit PO WK 05/21/22 05/21/22 History mcg (50,000 unit) capsule insulin aspart U-100 100 unit/mL 6 - 9 unit subcut TIDM 05/21/22 05/21/22 History (3 mL) subcutaneous pen (Novolog FlexPen U-100 Insulin aspart) insulin glargine 100 unit/mL (3 21 unit subcut PM 05/21/22 05/21/22 History mL) subcutaneous pen (Basaglar KwikPen U-100 Insulin) losartan 50 mg tablet 50 mg PO DAILY 05/21/22 05/21/22 History nitroglycerin 0.4 mg sublingual 0.4 mg sublingual DIRECTED PRN 05/21/22 05/21/22 History tablet Chest Pain prasugrel 10 mg tablet 10 mg PO DAILY 05/21/22 05/21/22 History sacubitril 49 mg-valsartan 51 mg 1 tab PO DAILY 05/21/22 05/21/22 History tablet (Entresto) Past Med/Surg History Medical History Cellulitis HLD (hyperlipidemia) Hypertension Sepsis Type 1 diabetes mellitus Surgical History Hx of heart artery stent Social History Smoking Status: Never smoker Second Hand Exposure: No; Do You Dip or Chew Tobacco: Yes; Tobacco Cessation Education Requested by Patient: No Hx Alcohol Use: Yes Hx Substance Use: No Preferred Language: Portuguese Communication Ability: Effective Driller Machine Required: No Beliefs That Will Affect Care: None Current Living Situation: Spouse Other Information That Helps Us Care for You: No Feels Safe at Home: Yes Assistive Devices: Cane Review of Systems Review of Systems: Neuro: (-) Falls, trauma, slurred speech HEENT: (-) AKERS, dizziness, dysphagia, visual or auditory changes CV: (-) CP, palpitations, swelling Resp: (-) SOB GI: (-) appetite changes, N/V/D, bowel changes : (-) urinary changes Skin: (-) rashes Psych: (-) anxiety, depression Physical Exam Physical Exam: Neuro: AAOx4, PERRLA, no aphagia, memory changes, CNII-XII grossly intact HEENT: head normocephalic, moist mucus membranes CV: S1/S2, (-) M/G/R, (-) edema, cap refill < 3 seconds Resp: Lungs CTA in all kitchen. On RA GI: Abdomen S/NT/ND, Ax4 bowel sounds, (-) CVA tenderness Musculoskeletal: 5/5 B/L UE strength, 5/5 B/L LE strength. No gait disturbance Skin: (+) induration and weeping RLE. Plantar aspect with thick yellow bullae. (-) crepitus. (+) skin sloughing and culcers from ankle to foot Psych: euthymic mood Results & Data Results & Data Vital Signs (Past 12 Hours) Vital Signs Temp Pulse Pulse Resp BP BP Pulse Ox 05/21/22 14:30 90 20 98 05/21/22 14:30 111/56 L 05/21/22 14:00 88 22 98 05/21/22 14:00 114/62 05/21/22 13:30 96 H 20 95 05/21/22 13:30 116/62 05/21/22 13:00 94 H 22 96 05/21/22 13:00 114/59 L 05/21/22 12:48 94 H 22 117/60 98 05/21/22 12:01 102 H 24 131/57 L 96 05/21/22 12:50 37.5 C 95 H 18 117/60 97 05/21/22 12:09 37.9 C H 102 H 20 131/57 L 97 05/21/22 12:06 101 H 05/21/22 12:01 93 05/21/22 11:27 38.5 C H 107 H 18 97/55 L 100 O2 Del Method 05/21/22 14:30 Room Air 05/21/22 14:30 05/21/22 14:00 Room Air 05/21/22 14:00 05/21/22 13:30 05/21/22 13:30 05/21/22 13:00 05/21/22 13:00 05/21/22 12:48 Room Air 05/21/22 12:01 Room Air 05/21/22 12:50 Room Air 05/21/22 12:09 Room Air 05/21/22 12:06 05/21/22 12:01 Room Air 05/21/22 11:27 Room Air Laboratory Results Short CBC 05/21/22 Range/Units 11:43 WBC 20.86 H (4.8-10.8) K/ul Hgb 9.4 L (14.0-18.0) g/dl Hct 29.2 L (42.0-52.0) % Plt Count 407 H (130-400) K/uL BMP 05/21/22 11:43 Sodium 131 L Potassium 3.8 Chloride 97 L Carbon Dioxide 21 BUN 45 H Creatinine 2.36 H Glucose 203 H Calcium 8.3 L Liver Function 05/21/22 Range/Units 11:43 Total Bilirubin 0.6 (0.2-1.0) mg/dl Direct Bilirubin 0.3 H (0-0.2) mg/dl AST 66 H (13-39) U/L ALT 85 H (7-52) U/L Alkaline Phosphatase 396 H (34-104) U/L Albumin 3.0 L (3.4-5.0) gm/dl Diagnostic Findings Chest X-Ray 05/21/22 11:56 XR chest 1V portable CLINICAL HISTORY: Sepsis. COMPARISON STUDY: No previous studies for comparison. FINDINGS: There is no pneumothorax or pleural effusion. There is no consolidation to suggest pneumonia. Moderate cardiomegaly is noted. No evidence for pulmonary edema. IMPRESSION: No acute cardiopulmonary findings. Cardiomegaly. ACT 112: Negative or not required by law. Electronically signed by: Matthew Conley M.D. 05/21/2022 1:[address] 05/21/22 12:04 CT foot RT wo con HISTORY: 56 years-old Male Sepsis, infected RLE acute sepsis with pain of the right lower extremity COMPARISON: CT right ankle, tibia and fibula studies of same day TECHNIQUE: Multiple axial CT images of the right foot were obtained without the use of IV contrast. A dose lowering technique was used consistent with the principals of ALARA. FINDINGS: Moderate diffuse subcutaneous edema. Arterial calcifications. There is at least mild atrophy of the intrinsic musculature. Tendons and ligaments are suboptimally evaluated by CT technique. No gross ligamentous or tendinous injury identified. No drainable fluid collection. Enthesophytes of the calcaneus. Demineralized appearance of the bones. No acute fracture, dislocation or osseous erosion. The distal toes only partially imaged on the axial series. Multifocal osteoarthritis, moderate within the midfoot. Midfoot alignment is anatomic. IMPRESSION: 1. No acute osseous abnormality. 2. Moderate diffuse subcutaneous edema without drainable fluid collection. Findings may represent cellulitis, lymphedema or venous stasis. ACT 112: Negative or not required by law. The above report was generated using voice recognition software. It may contain grammatical, syntax or spelling errors. Electronically signed by: Iván Ochoa M.D. 05/21/2022 2:[address] 05/21/22 12:04 CT SCAN OF THE RIGHT ANKLE WITHOUT IV CONTRAST CLINICAL HISTORY: Sepsis. Right foot infection. COMPARISON STUDY: No priors. TECHNIQUE: CT scan of the right ankle performed from the distal tibia and fibula to the base of the foot. Images are reviewed in the axial, sagittal, and coronal planes. IV contrast was not administered for this examination. A dose lowering technique was utilized adhering to the principles of ALARA. No definitive interpretation is suboptimal without plain film correlate. FINDINGS: The skeletal structures are heterogeneously osteopenic. No fracture is identified. Mild arthritic change is noted in the partially visualized midfoot. There is no bony erosion or periostitis. The ankle mortise is intact. No new degenerative change at the tibiotalar articulation. There is a dorsal calcaneal enthesophyte. No ankle joint effusion is identified. No lytic or blastic lesion is seen. Imaged portions of the Achilles tendon appear intact. Soft tissue edema and subcutaneous fluid is seen around the right ankle and in the visualized hindfoot. No organized/drainable fluid collection is seen to indicate abscess on these unenhanced images. There is atherosclerotic calcification of the regional arteries. The regional musculature is atrophic. No soft tissue gas is seen. IMPRESSION: 1. No acute bony abnormality is identified. 2. Soft tissue edema throughout the visualized right lower extremity is typical for cellulitis. Correlate clinically. 3. No organized fluid collection is seen to indicate abscess. 4. No soft tissue gas is seen. ACT 112: Negative or not required by law. Dictated: 05/21/2022 1:08 PM Transcribed: 05/21/2022 1:21 PM Hermes [id number] TRINA_Diogo [id number] Electronically signed by: Ayush Christopher M.D. 05/21/2022 1:[address] 05/21/22 12:05 CT OF THE RIGHT TIBIA AND FIBULA WITHOUT CONTRAST CLINICAL HISTORY: Sepsis, infected RLE. COMPARISON STUDY: No previous studies for comparison. TECHNIQUE: Axial images of the right tibia and fibula/right lower leg were obtained without IV contrast. Sagittal and coronal reconstructions were viewed. Automated exposure control was utilized for the study. A dose lowering technique was utilized adhering to the principles of ALARA. FINDINGS: Please note that the CTs of the right ankle and foot will be reported separately. There is no fracture within the right tibia or fibula. No CT evidence for acute osteomyelitis. Note is made of skin thickening and subcutaneous edema of the right lower leg, most pronounced medially. No associated fluid collection is identified on this unenhanced exam. No soft tissue gas. There is no significant fascial fluid. No intramuscular fluid collection is identified on unenhanced exam. There is extensive vascular calcification within the right calf vessels. There is no right knee joint e ffusion. IMPRESSION: 1. Skin thickening and subcutaneous fluid of the right lower leg suggestive of cellulitis. No fluid collection on unenhanced exam to suggest abscess. 2. No soft tissue gas. No evidence for acute osteomyelitis within the right tibia or fibula. ACT 112: Negative or not required by law. Electronically signed by: Matthew Conley M.D. 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 Per patient, he does not feel in his lower extremities below the knees, hence no pain. But he reports worsening RLE erythema and swelling since last several days associated with fever and chills. He reports he did have cellulitis in the same RLE in January 2022 for which he received antibiotic course. He is currently visiting in the area. Labs and imagings reviewed at presentation. WBC elevated, lactate and Pro-Ja elevated. Heart rate and temperature elevated at presentation. Sodium of 131 likely secondary to decreased p.o. 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 Creatinine elevated, likely acute kidney injury, baseline unknown. Outpatient epic chart reviewed with no information as [place]. Severe sepsis POA, received IV cefepime and vancomycin at ED, will continue with same. ID consult. c/w gentle ivf. Troponin elevated, likely type II NSTEMI secondary to severe sepsis POA and RAMON. For acute kidney injury, avoid nephrotoxic, continue with IV fluids. For transaminitis, will trend LFT in AM. Admitting imagings reviewed. Lower extremity CT suggestive of cellulitis. No fluid collection to suggest abscess. On exam: GENERAL: Alert and oriented x3. NAD, on RA. HEENT: No pallor, no icterus. Pupils equal, round and reactive to light. Oral mucosa moist. NECK: No JVD, no neck masses. HEART: S1 and S2 heard. Regular rate and rhythm/tachycardia. No murmur, no gallop. RESPIRATORY SYSTEM: Normal AP diameter. No accessory muscle use. No wheezing, no crackles. ABDOMEN: Soft, bowel sounds present, nontender, no distention. CENTRAL NERVOUS SYSTEM: No facial droop. Speech is clear. Obeys simple commands. Moves extremities. EXTREMITIES: Distal to knee - RLE erythematous/swollen w/ occasional dry scabs, no open wound or laceration. 2+ pedal edema. No BLE sensation below the knee. Some dry scabs over valadez of LLE. Dry skin noted. I have seen and examined the patient and have discussed the case with the provider above. I agree with the assessment and plan as stated.
--- NOTE | 2022-05-21 15:16 | Orthopedic Consultation ---
Date of Consultation May 21, 2022 Assessment & Plan (1) Cellulitis: Patient will be admitted under medicine service IV ABX per medicine Pain control per medicine Recommend ID consult Orthopedically patient is stable and does not require any surgical intervention. We will continue to follow. Present on Admission?: Yes Supervising Physician Co-Signing Physician Notes I, Dr. Ya, saw and examined the patient and discussed the management with my PA. I reviewed my PAs note and agree with the documented findings and the plan of care I developed. History of Present Illness Reason for Consultation: Right lower extremity cellulitis Requesting Physician: Todd Ya MD Attending Physician: Jarocho Pearson MD History of Present Illness This is a 56-year-old type I diabetic with history of hypertension as well as cardiac stent placement the presents to the emergency department referred by local urgent care accompanied by with complaints of "cellulitis in right leg". The patient notes intermittent fevers over the past week. notes that since this past Saturday his right lower extremity has been quite erythematous predominantly on the foot. No known trauma or injury. Patient has neuropathy at baseline with poor sensation from the knees distal in the bilateral lower extremities. Patient denies any chest pain or shortness of breath. No nausea or vomiting. Patient is unaware of any breaks in the integument to the right lower extremity causing the infection today. Patient's states that the patient had a similar issue back in [facility] and was hospitalized on IV ABX for almost a week back home in [place]. Today ED started patient on IV Cefepime and Vancomycin. Allergies Allergy/AdvReac Type Severity Reaction Status Date / Time atorvastatin AdvReac Unknown CONTRAINDICATED Verified 05/21/22 14:27 WITH OTHER MEDICATION empagliflozin AdvReac Unknown CONTRAINDICATED Verified 05/21/22 14:27 [From Jardiance] FOR TYPE I DIABETICS Home Medications Medication Instructions Recorded Confirmed Type albuterol sulfate 2.5 mg/3 mL 2.5 mg inhalation Q4H PRN Wheezing 05/21/22 05/21/22 History (0.083 %) solution for nebulization albuterol sulfate 90 mcg/actuation 2 puff inhalation DIRECTED PRN 05/21/22 05/21/22 History aerosol inhaler Shortness Of Breath Or Wheezing aspirin 81 mg tablet,delayed 81 mg PO DAILY 05/21/22 05/21/22 History release carvedilol 3.125 mg tablet 6.25 mg PO BID 05/21/22 05/21/22 History doxycycline hyclate 100 mg capsule 100 mg PO DAILY 05/21/22 05/21/22 History ergocalciferol (vitamin D2) 1,250 50,000 unit PO WK 05/21/22 05/21/22 History mcg (50,000 unit) capsule insulin aspart U-100 100 unit/mL 6 - 9 unit subcut TIDM 05/21/22 05/21/22 History (3 mL) subcutaneous pen (Novolog FlexPen U-100 Insulin aspart) insulin glargine 100 unit/mL (3 21 unit subcut PM 05/21/22 05/21/22 History mL) subcutaneous pen (Basaglar KwikPen U-100 Insulin) losartan 50 mg tablet 50 mg PO DAILY 05/21/22 05/21/22 History nitroglycerin 0.4 mg sublingual 0.4 mg sublingual DIRECTED PRN 05/21/22 05/21/22 History tablet Chest Pain prasugrel 10 mg tablet 10 mg PO DAILY 05/21/22 05/21/22 History sacubitril 49 mg-valsartan 51 mg 1 tab PO DAILY 05/21/22 05/21/22 History tablet (Entresto) Patient History Medical History Cellulitis HLD (hyperlipidemia) Hypertension Sepsis Type 1 diabetes mellitus Surgical History Hx of heart artery stent Social History Feels Safe at Home: Yes Review of Systems Review of Systems: All systems reviewed & are unremarkable except as noted in Subjective Physical Exam Physical Exam: Right lower extremity. Edema and erythema extending from just distal to knee to foot. Significant neurologic deficit in S1, L4&5 dermatomal areas johana. Multiple scabbed over superficial areas johana over anterior aspect of lower legs. Unable to detect light sensation to touch from mild lower leg to digits. Edema and erythema is most pronounced in the foot circumferentially. There is dry flaking/peeling skin on both LE's. Periph pulses are difficulty to palpated. Cap refill is unable to be appreciated due to onychomycosis of nail. There is a 3 cm x 2cm necrotic appearing are just proximal to the 1st MTP joint on the medial surface. Also the base of the 2nd toe has a "dark" appearance. Results & Data Vital Signs (Past 12 Hours) Vital Signs Temp Pulse Pulse Resp BP BP Pulse Ox 05/21/22 14:30 90 20 98 05/21/22 14:30 111/56 L 05/21/22 14:00 88 22 98 05/21/22 14:00 114/62 05/21/22 13:30 96 H 20 95 05/21/22 13:30 116/62 05/21/22 13:00 94 H 22 96 05/21/22 13:00 114/59 L 05/21/22 12:48 94 H 22 117/60 98 05/21/22 12:01 102 H 24 131/57 L 96 05/21/22 12:50 37.5 C 95 H 18 117/60 97 05/21/22 12:09 37.9 C H 102 H 20 131/57 L 97 05/21/22 12:06 101 H 05/21/22 12:01 93 05/21/22 11:27 38.5 C H 107 H 18 97/55 L 100 O2 Del Method 05/21/22 14:30 Room Air 05/21/22 14:30 05/21/22 14:00 Room Air 05/21/22 14:00 05/21/22 13:30 05/21/22 13:30 05/21/22 13:00 05/21/22 13:00 05/21/22 12:48 Room Air 05/21/22 12:01 Room Air 05/21/22 12:50 Room Air 05/21/22 12:09 Room Air 05/21/22 12:06 05/21/22 12:01 Room Air 05/21/22 11:27 Room Air Diagnostic Findings Laboratory Results WBC 20.86 K/ul (4.8-10.8) H 05/21/22 11:43 RBC 3.75 M/uL (4.70-6.10) L 05/21/22 11:43 Hgb 9.4 g/dl (14.0-18.0) L 05/21/22 11:43 Hct 29.2 % (42.0-52.0) L 05/21/22 11:43 MCV 77.9 fL (80.0-100.0) L 05/21/22 11:43 MCH 25.1 pg (25.0-34.0) 05/21/22 11:43 MCHC 32.2 g/dL (32.0-36.0) 05/21/22 11:43 RDW Std Deviation 41.5 fL (36.4-46.3) 05/21/22 11:43 RDW Coeff of Bianca 14.6 % (11.5-14.5) H 05/21/22 11:43 Plt Count 407 K/uL (130-400) H 05/21/22 11:43 MPV 10.3 fL (9.4-12.4) 05/21/22 11:43 Immature Gran % (Auto) 1.3 % 05/21/22 11:43 Neut % (Auto) 93.2 % 05/21/22 11:43 Lymph % (Auto) 2.0 % 05/21/22 11:43 [place] % (Auto) 3.2 % 05/21/22 11:43 Eos % (Auto) 0.1 % 05/21/22 11:43 Baso % (Auto) 0.2 % 05/21/22 11:43 Neut # (Auto) 19.45 K/uL (1.40-6.50) H 05/21/22 11:43 Lymph # (Auto) 0.41 K/uL (1.2-3.4) L 05/21/22 11:43 [place] # (Auto) 0.66 K/uL (0.11-0.59) H 05/21/22 11:43 Eos # (Auto) 0.02 K/uL (0-0.50) 05/21/22 11:43 Baso # (Auto) 0.05 K/uL (0-0.2) 05/21/22 11:43 Immature Gran # (Auto) 0.27 K/uL (0.01-0.20) H 05/21/22 11:43 Toxic Granulation 1+ 05/21/22 11:43 Dohle Bodies 1+ 05/21/22 11:43 Acanthocytes (Spur) 1+ 05/21/22 11:43 ESR 91 mm/hr (0-20) H 05/21/22 11:43 PT 12.8 Seconds (9.0-12.0) H 05/21/22 11:43 INR 1.2 (0.9-1.1) H 05/21/22 11:43 APTT 29.3 Seconds (21.0-31.0) 05/21/22 11:43 PTT Ratio 1.1 05/21/22 11:43 VBG pH 7.38 (7.36-7.41) 05/21/22 12:12 VBG pCO2 38 mmHg (38-50) 05/21/22 12:12 VBG pO2 21 mmHg 05/21/22 12:12 VBG HCO3 23 mmol/L 05/21/22 12:12 VBG O2 Saturation < 60.0 % 05/21/22 12:12 VBG Base Excess -2.4 mEq/L 05/21/22 12:12 Sodium 131 mmol/L (136-145) L 05/21/22 11:43 Potassium 3.8 mmol/L (3.5-5.1) 05/21/22 11:43 Chloride 97 mmol/L (98-107) L 05/21/22 11:43 Carbon Dioxide 21 mmol/L (21-32) 05/21/22 11:43 Anion Gap 13 (3-11) H 05/21/22 11:43 BUN 45 mg/dl (6-23) H 05/21/22 11:43 Creatinine 2.36 mg/dl (0.6-1.4) H 05/21/22 11:43 Est Cr Clr Drug Dosing 34.6 ml/min 05/21/22 11:43 Est GFR ( Amer) 34.1 ml/min 05/21/22 11:43 Est GFR (Non-Af Amer) 29.5 ml/min 05/21/22 11:43 BUN/Creatinine Ratio 19.1 (10-20) 05/21/22 11:43 Glucose 203 mg/dl (70-99(Fasting)) H 05/21/22 11:43 Lactate 3.2 mmol/L (0.4-2.0) H* 05/21/22 11:45 Uric Acid 8.1 mg/dl (2.6-7.2) H 05/21/22 11:43 Calcium 8.3 mg/dl (8.6-10.3) L 05/21/22 11:43 Magnesium 1.8 mg/dl (1.7-2.4) 05/21/22 11:43 Total Bilirubin 0.6 mg/dl (0.2-1.0) 05/21/22 11:43 Direct Bilirubin 0.3 mg/dl (0-0.2) H 05/21/22 11:43 AST 66 U/L (13-39) H 05/21/22 11:43 ALT 85 U/L (7-52) H 05/21/22 11:43 Alkaline Phosphatase 396 U/L (34-104) H 05/21/22 11:43 Troponin I High Sens 108.1 pg/ml (0-20) H* 05/21/22 11:43 C-Reactive Protein 31.43 mg/dl (0-0.5) H 05/21/22 11:43 Total Protein 7.5 gm/dl (6.0-8.3) 05/21/22 11:43 Albumin 3.0 gm/dl (3.4-5.0) L 05/21/22 11:43 Procalcitonin 4.59 ng/ml (0-0.5) H 05/21/22 11:43 SARS-CoV-2 (PCR) NEGATIVE (Negative) 05/21/22 12:52 Influenza Type A (PCR) Negative (Neg) 05/21/22 12:52 Influenza Type B (PCR) Negative (Neg) 05/21/22 12:52 RSV (RT-PCR) Negative (Neg) 05/21/22 12:52 Blood Type B Positive 05/21/22 12:12 Antibody Screen NEGATIVE 05/21/22 12:12 Impressions Chest X-Ray 05/21/22 11:56 XR chest 1V portable CLINICAL HISTORY: Sepsis. COMPARISON STUDY: No previous studies for comparison. FINDINGS: There is no pneumothorax or pleural effusion. There is no consolidation to suggest pneumonia. Moderate cardiomegaly is noted. No evidence for pulmonary edema. IMPRESSION: No acute cardiopulmonary findings. Cardiomegaly. ACT 112: Negative or not required by law. Electronically signed by: Matthew Conley M.D. 05/21/2022 1:[address] 05/21/22 12:04 CT foot RT wo con HISTORY: 56 years-old Male Sepsis, infected RLE acute sepsis with pain of the right lower extremity COMPARISON: CT right ankle, tibia and fibula studies of same day TECHNIQUE: Multiple axial CT images of the right foot were obtained without the use of IV contrast. A dose lowering technique was used consistent with the principals of ALARA. FINDINGS: Moderate diffuse subcutaneous edema. Arterial calcifications. There is at least mild atrophy of the intrinsic musculature. Tendons and ligaments are suboptimally evaluated by CT technique. No gross ligamentous or tendinous injury identified. No drainable fluid collection. Enthesophytes of the calcaneus. Demineralized appearance of the bones. No acute fracture, dislocation or osseous erosion. The distal toes only partially imaged on the axial series. Multifocal osteoarthritis, moderate within the midfoot. Midfoot alignment is anatomic. IMPRESSION: 1. No acute osseous abnormality. 2. Moderate diffuse subcutaneous edema without drainable fluid collection. Findings may represent cellulitis, lymphedema or venous stasis. ACT 112: Negative or not required by law. The above report was generated using voice recognition software. It may contain grammatical, syntax or spelling errors. Electronically signed by: Iván Ochoa M.D. 05/21/2022 2:[address] 05/21/22 12:05 CT OF THE RIGHT TIBIA AND FIBULA WITHOUT CONTRAST CLINICAL HISTORY: Sepsis, infected RLE. COMPARISON STUDY: No previous studies for comparison. TECHNIQUE: Axial images of the right tibia and fibula/right lower leg were obtained without IV contrast. Sagittal and coronal reconstructions were viewed. Automated exposure control was utilized for the study. A dose lowering technique was utilized adhering to the principles of ALARA. FINDINGS: Please note that the CTs of the right ankle and foot will be reported separately. There is no fracture within the right tibia or fibula. No CT evidence for acute osteomyelitis. Note is made of skin thickening and subcutaneous edema of the right lower leg, most pronounced medially. No associated fluid collection is identified on this unenhanced exam. No soft tissue gas. There is no significant fascial fluid. No intramuscular fluid collection is identified on unenhanced exam. There is extensive vascular calcification within the right calf vessels. There is no right knee joint effusion. IMPRESSION: 1. Skin thickening and subcutaneous fluid of the right lower leg suggestive of cellulitis. No fluid collection on unenhanced exam to suggest abscess. 2. No soft tissue gas. No evidence for acute osteomyelitis within the right tibia or fibula. ACT 112: Negative or not required by law. Electronically signed by: Matthew Conley M.D. 05/21/2022 1:32 PM
[2022-05-21] MEDS ORDERED: ALBUTEROL 0.083% NEBU SOLN 3 ML VIAL INH PRN (16:18)
[2022-05-21] MEDS ORDERED: GLUCAGON FOR INJ 1 MG VIAL SQ PRN (16:31)
[2022-05-21] MEDS ORDERED: GLUCOSE 40% GEL 15 GM TUBE PO PRN (16:31)
[2022-05-21] MEDS ORDERED: DEXTROSE 50% 50 ML SYRINGE IV PRN (16:31)
[2022-05-21] MEDS ORDERED: PHARMACY GLYCEMIC MGMT CONSULT PRN (16:31)
[2022-05-21] MEDS ORDERED: GLUCOSE 10 TAB/TUBE PO PRN (16:31)
[2022-05-21] MEDS ORDERED: LANTUS PER UNIT CHARGE SQ ONE (17:15)
[2022-05-21] MEDS: INSULIN ASPART PER UNIT CHARGE SC SCH ×2 (17:55→21:07)
--- NOTE | 2022-05-21 20:00 | Pharmacy Report ---
Pharmacy PK ABX Note - Date of Service May 21, 2022 - Assessment and Plan Assessment 56 year old M receiving vancomycin and cefepime for treatment of sepsis secondary to right lower extremity cellulitis. Blood cultures pending. Patient with RAMON, SCr-2.36 (unknown baseline). Day #1 of antimicrobial therapy. Plan Vancomycin * Loading dose: 1500 mg IV x 1 (~1300) * Given RAMON and changing renal function, will dose by levels until renal function stabilizes * Random level 4/4 AM Pharmacy will continue to follow and will adjust dose/frequency as necessary. Thank you. Pharmacy has transitioned to AUC monitoring for vancomycin. AUC/NATHAN is the preferred PK/PD target and is associated with decreased risk of nephrotoxicity compared to traditional trough targets.
[2022-05-21] MEDS: HEPARIN SOD 5,000 UNIT/0.5 ML VIAL SQ SCH (20:25)
[2022-05-21] MEDS: carvediloL 6.25 MG TAB PO SCH (20:26)
[2022-05-21] MEDS ORDERED: VANCOMYCIN HCL IV SCH (21:00)
[2022-05-21] MEDS ORDERED: SODIUM CHLORIDE 0.9% IV SCH (21:00)
[2022-05-21] MEDS: oxyCODONE HCL IR 5 MG TAB (IMMEDIATE RELEASE) PO PRN (22:46)
[2022-05-22] MEDS ORDERED: diphenhydrAMINE Capsule 25 MG CAP PO ONE (00:23)
[2022-05-22] MEDS: CEFEPIME 2,000 MG in SYRINGE 0 ML IV SCH ×2 (00:34→13:00)
[2022-05-22] MEDS: INSULIN ASPART PER UNIT CHARGE SC SCH ×6 (00:34→20:40)
[2022-05-22 06:22] LABS: Hemoglobin 8.1 g/dl (14.0-18.0); Mean Corpuscular Hemoglobin 24.8 pg (25.0-34.0); Mean Corpuscular Hgb Conc 32.4 g/dL (32.0-36.0); Mean Corpuscular Volume 76.7 fL (80.0-100.0); Mean Platelet Volume 10.3 fL (9.4-12.4); Platelet Count 336 K/uL (130-400); RDW Coefficient of Variation 14.8 % (11.5-14.5); RDW Standard Deviation 41.8 fL (36.4-46.3); Red Blood Count 3.26 M/uL (4.70-6.10); White Blood Count 16.26 K/ul (4.8-10.8)
[2022-05-22 06:43] LABS: Albumin Globulin Ratio 0.6 (0.9-2); Albumin Level 2.3 gm/dl (3.4-5.0); BUN Creatinine Ratio 25.4 (10-20); Bilirubin,Total 0.4 mg/dl (0.2-1.0); Calcium 7.4 mg/dl (8.6-10.3); Est GFR (Non-African American) 40.6 ml/min; Globulin 3.7 gm/dl (2.5-4.0); Magnesium 1.8 mg/dl (1.7-2.4); Potassium 3.9 mmol/L (3.5-5.1)
[2022-05-22] MEDS ORDERED: VANCOMYCIN HCL 1,500 MG in SODIUM CHLORIDE 0.9% 500 ML IV ONE (08:00)
[2022-05-22] MEDS ORDERED: LANTUS PER UNIT CHARGE SQ ONE (08:00)
[2022-05-22] MEDS: carvediloL 6.25 MG TAB PO SCH ×2 (08:44→20:33)
[2022-05-22] MEDS: HEPARIN SOD 5,000 UNIT/0.5 ML VIAL SQ SCH ×2 (08:44→20:32)
[2022-05-22] MEDS: ASPIRIN 81 MG ECTAB PO SCH (08:44)
[2022-05-22] MEDS: PRASugrel TAB 10 MG TAB PO SCH (08:45)
[2022-05-22] MEDS: oxyCODONE HCL IR 5 MG TAB (IMMEDIATE RELEASE) PO PRN ×3 (08:55→21:41)
[2022-05-22 08:58] LABS: Estimated Average Glucose 246 mg/dl; Hemoglobin A1C 10.2 % (4.5-5.6)
[2022-05-22] MEDS ORDERED: ERGOCALCIFEROL 50,000 UNITS 1250 MCG CAP PO SCH (09:00)
[2022-05-22] MEDS: SODIUM CHLORIDE 0.9% 1000ML 1,000 ML IV SCH (09:19)
--- NOTE | 2022-05-22 09:27 | Orthopedic Progress Note ---
Date of Service May 22, 2022 Assessment & Plan (1) Cellulitis: Plan: Patient will be admitted under medicine service IV ABX per medicine Pain control per medicine Recommend ID consult Orthopedically patient is stable and does not require any surgical intervention. Please recall ortho if any orthopaedic issues arise. Should follow-up with PCP back home in [place] 1 week after discharge Present on Admission?: Yes Admission and Anticipated Discharge Date Admission Date: May 21, 2022 Subjective Feeling much better Physical Exam Physical Exam: RLE: Erythema/swelling is much improved. BCR < 2 sec. motion of toes and foot is unchanged from baseline per patient. insensate distally also unchanged from baseline per patient. Multiple scratches with scabs RLE and toes. Minimal serous drainage medial mid-foot. Results & Data Vital Signs (Past 12 Hours) Vital Signs Temp Pulse Pulse Resp BP Pulse Ox O2 Del Method 05/22/22 07:59 37.8 C H 87 16 107/66 97 Room Air 05/22/22 07:46 88 05/22/22 04:00 37.3 C 16 107/65 99 Room Air 05/21/22 22:00 73 05/21/22 23:59 36.6 C 70 18 92/52 L 99 Room Air 05/21/22 22:00 36.6 C 70 18 92/52 L 99 Room Air Diagnostic Findings Laboratory Results WBC 16.26 K/ul (4.8-10.8) H 05/22/22 05:35 RBC 3.26 M/uL (4.70-6.10) L 05/22/22 05:35 Hgb 8.1 g/dl (14.0-18.0) L 05/22/22 05:35 Hct 25.0 % (42.0-52.0) L 05/22/22 05:35 MCV 76.7 fL (80.0-100.0) L 05/22/22 05:35 MCH 24.8 pg (25.0-34.0) L 05/22/22 05:35 MCHC 32.4 g/dL (32.0-36.0) 05/22/22 05:35 RDW Std Deviation 41.8 fL (36.4-46.3) 05/22/22 05:35 RDW Coeff of Bianca 14.8 % (11.5-14.5) H 05/22/22 05:35 Plt Count 336 K/uL (130-400) 05/22/22 05:35 MPV 10.3 fL (9.4-12.4) 05/22/22 05:35 Immature Gran % (Auto) 1.3 % 05/21/22 11:43 Neut % (Auto) 93.2 % 05/21/22 11:43 Lymph % (Auto) 2.0 % 05/21/22 11:43 [place] % (Auto) 3.2 % 05/21/22 11:43 Eos % (Auto) 0.1 % 05/21/22 11:43 Baso % (Auto) 0.2 % 05/21/22 11:43 Neut # (Auto) 19.45 K/uL (1.40-6.50) H 05/21/22 11:43 Lymph # (Auto) 0.41 K/uL (1.2-3.4) L 05/21/22 11:43 [place] # (Auto) 0.66 K/uL (0.11-0.59) H 05/21/22 11:43 Eos # (Auto) 0.02 K/uL (0-0.50) 05/21/22 11:43 Baso # (Auto) 0.05 K/uL (0-0.2) 05/21/22 11:43 Immature Gran # (Auto) 0.27 K/uL (0.01-0.20) H 05/21/22 11:43 Toxic Granulation 1+ 05/21/22 11:43 Dohle Bodies 1+ 05/21/22 11:43 Acanthocytes (Spur) 1+ 05/21/22 11:43 ESR 91 mm/hr (0-20) H 05/21/22 11:43 PT 12.8 Seconds (9.0-12.0) H 05/21/22 11:43 INR 1.2 (0.9-1.1) H 05/21/22 11:43 APTT 29.3 Seconds (21.0-31.0) 05/21/22 11:43 PTT Ratio 1.1 05/21/22 11:43 VBG pH 7.38 (7.36-7.41) 05/21/22 12:12 VBG pCO2 38 mmHg (38-50) 05/21/22 12:12 VBG pO2 21 mmHg 05/21/22 12:12 VBG HCO3 23 mmol/L 05/21/22 12:12 VBG O2 Saturation < 60.0 % 05/21/22 12:12 VBG Base Excess -2.4 mEq/L 05/21/22 12:12 Sodium 131 mmol/L (136-145) L 05/22/22 05:35 Potassium 3.9 mmol/L (3.5-5.1) 05/22/22 05:35 Chloride 102 mmol/L (98-107) 05/22/22 05:35 Carbon Dioxide 20 mmol/L (21-32) L 05/22/22 05:35 Anion Gap 9 (3-11) 05/22/22 05:35 BUN 46 mg/dl (6-23) H 05/22/22 05:35 Creatinine 1.81 mg/dl (0.6-1.4) H D 05/22/22 05:35 Est Cr Clr Drug Dosing 48.0 ml/min 05/22/22 05:35 Est GFR ( Amer) 47.0 ml/min 05/22/22 05:35 Est GFR (Non-Af Amer) 40.6 ml/min 05/22/22 05:35 BUN/Creatinine Ratio 25.4 (10-20) H 05/22/22 05:35 Glucose 229 mg/dl (70-99(Fasting)) H 05/22/22 05:35 POC Glucose 216 mg/dl (70-99) H 05/22/22 07:21 Estimat Average Glucose 246 mg/dl 05/22/22 05:35 Hemoglobin A1c 10.2 % (4.5-5.6) H 05/22/22 05:35 Lactate 1.5 mmol/L (0.4-2.0) 05/21/22 15:20 Uric Acid 8.1 mg/dl (2.6-7.2) H 05/21/22 11:43 Calcium 7.4 mg/dl (8.6-10.3) L 05/22/22 05:35 Magnesium 1.8 mg/dl (1.7-2.4) 05/22/22 05:35 Total Bilirubin 0.4 mg/dl (0.2-1.0) 05/22/22 05:35 Direct Bilirubin 0.3 mg/dl (0-0.2) H 05/21/22 11:43 AST 27 U/L (13-39) 05/22/22 05:35 ALT 50 U/L (7-52) 05/22/22 05:35 Alkaline Phosphatase 265 U/L (34-104) H 05/22/22 05:35 Troponin I High Sens 20.7 pg/ml (0-20) H D 05/21/22 15:20 C-Reactive Protein 31.43 mg/dl (0-0.5) H 05/21/22 11:43 Total Protein 6.0 gm/dl (6.0-8.3) 05/22/22 05:35 Albumin 2.3 gm/dl (3.4-5.0) L 05/22/22 05:35 Globulin 3.7 gm/dl (2.5-4.0) 05/22/22 05:35 Albumin/Globulin Ratio 0.6 (0.9-2) L 05/22/22 05:35 Procalcitonin 4.59 ng/ml (0-0.5) H 05/21/22 11:43 Random Vancomycin 8.7 mcg/ml (10-20) L 05/22/22 05:35 SARS-CoV-2 (PCR) NEGATIVE (Negative) 05/21/22 12:52 Influenza Type A (PCR) Negative (Neg) 05/21/22 12:52 Influenza Type B (PCR) Negative (Neg) 05/21/22 12:52 RSV (RT-PCR) Negative (Neg) 05/21/22 12:52 Blood Type B Positive 05/21/22 12:12 Antibody Screen NEGATIVE 05/21/22 12:12 Impressions Chest X-Ray 05/21/22 11:56 XR chest 1V portable CLINICAL HISTORY: Sepsis. COMPARISON STUDY: No previous studies for comparison. FINDINGS: There is no pneumothorax or pleural effusion. There is no consolidation to suggest pneumonia. Moderate cardiomegaly is noted. No evidence for pulmonary edema. IMPRESSION: No acute cardiopulmonary findings. Cardiomegaly. ACT 112: Negative or not required by law. Electronically signed by: Matthew Conley M.D. 05/21/2022 1:[address] 05/21/22 12:04 CT foot RT wo con HISTORY: 56 years-old Male Sepsis, infected RLE acute sepsis with pain of the right lower extremity COMPARISON: CT right ankle, tibia and fibula studies of same day TECHNIQUE: Multiple axial CT images of the right foot were obtained without the use of IV contrast. A dose lowering technique was used consistent with the principals of ALARA. FINDINGS: Moderate diffuse subcutaneous edema. Arterial calcifications. There is at least mild atrophy of the intrinsic musculature. Tendons and ligaments are suboptimally evaluated by CT technique. No gross ligamentous or tendinous injury identified. No drainable fluid collection. Enthesophytes of the calcaneus. Demineralized appearance of the bones. No acute fracture, dislocation or osseous erosion. The distal toes only partially imaged on the axial series. Multifocal osteoarthritis, moderate within the midfoot. Midfoot alignment is anatomic. IMPRESSION: 1. No acute osseous abnormality. 2. Moderate diffuse subcutaneous edema without drainable fluid collection. Findings may represent cellulitis, lymphedema or venous stasis. ACT 112: Negative or not required by law. The above report was generated using voice recognition software. It may contain grammatical, syntax or spelling errors. Electronically signed by: Iván Ochoa M.D. 05/21/2022 2:[address] 05/21/22 12:05 CT OF THE RIGHT TIBIA AND FIBULA WITHOUT CONTRAST CLINICAL HISTORY: Sepsis, infected RLE. COMPARISON STUDY: No previous studies for comparison. TECHNIQUE: Axial images of the right tibia and fibula/right lower leg were obtained without IV contrast. Sagittal and coronal reconstructions were viewed. Automated exposure control was utilized for the study. A dose lowering technique was utilized adhering to the principles of ALARA. FINDINGS: Please note that the CTs of the right ankle and foot will be reported separately. There is no fracture within the right tibia or fibula. No CT evidence for acute osteomyelitis. Note is made of skin thickening and subcutaneous edema of the right lower leg, most pronounced medially. No associated fluid collection is identified on this unenhanced exam. No soft tissue gas. There is no significant fascial fluid. No intramuscular fluid collection is identified on unenhanced exam. There is extensive vascular calcif ication within the right calf vessels. There is no right knee joint effusion. IMPRESSION: 1. Skin thickening and subcutaneous fluid of the right lower leg suggestive of cellulitis. No fluid collection on unenhanced exam to suggest abscess. 2. No soft tissue gas. No evidence for acute osteomyelitis within the right tibia or fibula. ACT 112: Negative or not required by law. Electronically signed by: Matthew Conley M.D. 05/21/2022 1:32 PM
--- NOTE | 2022-05-22 09:45 | Pharmacy Report ---
Pharmacy PK ABX Note - Date of Service May 22, 2022 - Assessment and Plan Assessment 56 year old M receiving vancomycin and cefepime for treatment of sepsis secondary to right lower extremity cellulitis. Blood cultures pending. Patient with RAMON, (1.13 in Mar 12 per [facility] records). Day #2 of antimicrobial therapy. Plan Vancomycin * Level this AM 8.7, additional 1500mg x1 dose given. * Given improving renal function (2.36 to 1.81) ordered vancomycin 1500mg Q24H for 4/5 tomorrow. This is expected to achieve therapeutic levels at this level renal function and if renal function improves to baseline tomorrow. * Serum creatinine and random level 4/5 AM to assess efficacy of regimen Pharmacy will continue to follow and will adjust dose/frequency as necessary. Thank you. Pharmacy has transitioned to AUC monitoring for vancomycin. AUC/NATHAN is the preferred PK/PD target and is associated with decreased risk of nephrotoxicity compared to traditional trough targets.
--- NOTE | 2022-05-22 09:45 | Orthopedic Progress Note ---
Date of Service May 22, 2022 Assessment & Plan (1) Cellulitis: Plan: Patient is reporting improvement since starting IV antibiotic Recommend continuing with IV antibiotics and have consult with infectious disease Continue with pain control per primary team Recommend elevating right lower extremity and patient to do gentle range of motion to assist with swelling Orthopedically patient is stable and does not require any surgical intervention. Please recall ortho if any orthopaedic issues arise. Should follow-up with PCP back home in [place] 1 week after discharge Present on Admission?: Yes Admission and Anticipated Discharge Date Admission Date: May 21, 2022 Subjective Patient is a 56-year-old male who has a history of having right lower extremity cellulitis. He was seen this a.m. in bed. He states he is feeling better than he was. He states he is not having any fever or chills at this time. He states the redness and swelling is slowly improving in the right lower extremity. He is from [place] and is hoping that he can be discharged by to return home with his . He has a history of having cellulitis and being admitted in January 2020 to back home. Review of Systems Review of Systems: Please refer to HPI Physical Exam Physical Exam: General: Patient is alert and oriented x3 no acute distress pleasant Musculoskeletal/integumentary: He has slight erythema and moderate swelling over the distal right lower extremity. Per patient this is improved he has multiple scabs over the lower extremity. Over the arch of the foot superficial opening without any active drainage. He is baseline no sensation over foot or toes or distal right lower extremity. He is able to actively dorsiflex and plantarflex ankle and move toes slightly. Right lower extremity is neurovascular intact Results & Data Vital Signs (Past 12 Hours) Vital Signs Temp Pulse Pulse Resp BP Pulse Ox O2 Del Method 05/22/22 07:59 37.8 C H 87 16 107/66 97 Room Air 05/22/22 07:46 88 05/22/22 04:00 37.3 C 16 107/65 99 Room Air 05/21/22 22:00 73 05/21/22 23:59 36.6 C 70 18 92/52 L 99 Room Air 05/21/22 22:00 36.6 C 70 18 92/52 L 99 Room Air Laboratory Results 05/22/22 05/22/22 05/22/22 Range/Units 07:21 05:35 05:35 WBC (4.8-10.8) K/ul RBC (4.70-6.10) M/uL Hgb (14.0-18.0) g/dl Hct (42.0-52.0) % MCV (80.0-100.0) fL MCH (25.0-34.0) pg MCHC (32.0-36.0) g/dL RDW Std Deviation (36.4-46.3) fL RDW Coeff of Bianca (11.5-14.5) % Plt Count (130-400) K/uL MPV (9.4-12.4) fL Immature Gran % (Auto) % Neut % (Auto) % Lymph % (Auto) % Hale % (Auto) % Eos % (Auto) % Baso % (Auto) % Neut # (Auto) (1.40-6.50) K/uL Lymph # (Auto) (1.2-3.4) K/uL Hale # (Auto) (0.11-0.59) K/uL Eos # (Auto) (0-0.50) K/uL Baso # (Auto) (0-0.2) K/uL Immature Gran # (Auto) (0.01-0.20) K/uL Toxic Granulation Dohle Bodies Acanthocytes (Spur) ESR (0-20) mm/hr PT (9.0-12.0) Seconds INR (0.9-1.1) APTT (21.0-31.0) Seconds PTT Ratio VBG pH (7.36-7.41) VBG pCO2 (38-50) mmHg VBG pO2 mmHg VBG HCO3 mmol/L VBG O2 Saturation % VBG Base Excess mEq/L Sodium (136-145) mmol/L Potassium (3.5-5.1) mmol/L Chloride (98-107) mmol/L Carbon Dioxide (21-32) mmol/L Anion Gap (3-11) BUN (6-23) mg/dl Creatinine (0.6-1.4) mg/dl Est Cr Clr Drug Dosing ml/min Est GFR ( Amer) ml/min Est GFR (Non-Af Amer) ml/min BUN/Creatinine Ratio (10-20) Glucose (70-99(Fasting)) mg/dl POC Glucose 216 H (70-99) mg/dl Estimat Average Glucose 246 mg/dl Hemoglobin A1c 10.2 H (4.5-5.6) % Lactate (0.4-2.0) mmol/L Uric Acid (2.6-7.2) mg/dl Calcium (8.6-10.3) mg/dl Magnesium (1.7-2.4) mg/dl Total Bilirubin (0.2-1.0) mg/dl Direct Bilirubin (0-0.2) mg/dl AST (13-39) U/L ALT (7-52) U/L Alkaline Phosphatase (34-104) U/L Troponin I High Sens (0-20) pg/ml C-Reactive Protein (0-0.5) mg/dl Total Protein (6.0-8.3) gm/dl Albumin (3.4-5.0) gm/dl Globulin (2.5-4.0) gm/dl Albumin/Globulin Ratio (0.9-2) Procalcitonin (0-0.5) ng/ml Random Vancomycin 8.7 L (10-20) mcg/ml SARS-CoV-2 (PCR) (Negative) Influenza Type A (PCR) (Neg) Influenza Type B (PCR) (Neg) RSV (RT-PCR) (Neg) Blood Type Antibody Screen 05/22/22 05/22/22 05/22/22 Range/Units 05:35 05:35 03:45 WBC 16.26 H (4.8-10.8) K/ul RBC 3.26 L (4.70-6.10) M/uL Hgb 8.1 L (14.0-18.0) g/dl Hct 25.0 L (42.0-52.0) % MCV 76.7 L (80.0-100.0) fL MCH 24.8 L (25.0-34.0) pg MCHC 32.4 (32.0-36.0) g/dL RDW Std Deviation 41.8 (36.4-46.3) fL RDW Coeff of Bianca 14.8 H (11.5-14.5) % Plt Count 336 (130-400) K/uL MPV 10.3 (9.4-12.4) fL Immature Gran % (Auto) % Neut % (Auto) % Lymph % (Auto) % Hale % (Auto) % Eos % (Auto) % Baso % (Auto) % Neut # (Auto) (1.40-6.50) K/uL Lymph # (Auto) (1.2-3.4) K/uL Hale # (Auto) (0.11-0.59) K/uL Eos # (Auto) (0-0.50) K/uL Baso # (Auto) (0-0.2) K/uL Immature Gran # (Auto) (0.01-0.20) K/uL Toxic Granulation Dohle Bodies Acanthocytes (Spur) ESR (0-20) mm/hr PT (9.0-12.0) Seconds INR (0.9-1.1) APTT (21.0-31.0) Seconds PTT Ratio VBG pH (7.36-7.41) VBG pCO2 (38-50) mmHg VBG pO2 mmHg VBG HCO3 mmol/L VBG O2 Saturation % VBG Base Excess mEq/L Sodium 131 L (136-145) mmol/L Potassium 3.9 (3.5-5.1) mmol/L Chloride 102 (98-107) mmol/L Carbon Dioxide 20 L (21-32) mmol/L Anion Gap 9 (3-11) BUN 46 H (6-23) mg/dl Creatinine 1.81 H D (0.6-1.4) mg/dl Est Cr Clr Drug Dosing 48.0 ml/min Est GFR ( Amer) 47.0 ml/min Est GFR (Non-Af Amer) 40.6 ml/min BUN/Creatinine Ratio 25.4 H (10-20) Glucose 229 H (70-99(Fasting)) mg/dl POC Glucose 277 H (70-99) mg/dl Estimat Average Glucose mg/dl Hemoglobin A1c (4.5-5.6) % Lactate (0.4-2.0) mmol/L Uric Acid (2.6-7.2) mg/dl Calcium 7.4 L (8.6-10.3) mg/dl Magnesium 1.8 (1.7-2.4) mg/dl Total Bilirubin 0.4 (0.2-1.0) mg/dl Direct Bilirubin (0-0.2) mg/dl AST 27 (13-39) U/L ALT 50 (7-52) U/L Alkaline Phosphatase 265 H (34-104) U/L Troponin I High Sens (0-20) pg/ml C-Reactive Protein (0-0.5) mg/dl Total Protein 6.0 (6.0-8.3) gm/dl Albumin 2.3 L (3.4-5.0) gm/dl Globulin 3.7 (2.5-4.0) gm/dl Albumin/Globulin Ratio 0.6 L (0.9-2) Procalcitonin (0-0.5) ng/ml Random Vancomycin (10-20) mcg/ml SARS-CoV-2 (PCR) (Negative) Influenza Type A (PCR) (Neg) Influenza Type B (PCR) (Neg) RSV (RT-PCR) (Neg) Blood Type Antibody Screen 05/22/22 05/21/22 05/21/22 Range/Units 00:05 20:51 19:23 WBC (4.8-10.8) K/ul RBC (4.70-6.10) M/uL Hgb (14.0-18.0) g/dl Hct (42.0-52.0) % MCV (80.0-100.0) fL MCH (25.0-34.0) pg MCHC (32.0-36.0) g/dL RDW Std Deviation (36.4-46.3) fL RDW Coeff of Bianca (11.5-14.5) % Plt Count (130-400) K/uL MPV (9.4-12.4) fL Immature Gran % (Auto) % Neut % (Auto) % Lymph % (Auto) % Hale % (Auto) % Eos % (Auto) % Baso % (Auto) % Neut # (Auto) (1.40-6.50) K/uL Lymph # (Auto) (1.2-3.4) K/uL Hale # (Auto) (0.11-0.59) K/uL Eos # (Auto) (0-0.50) K/uL Baso # (Auto) (0-0.2) K/uL Immature Gran # (Auto) (0.01-0.20) K/uL Toxic Granulation Dohle Bodies Acanthocytes (Spur) ESR (0-20) mm/hr PT (9.0-12.0) Seconds INR (0.9-1.1) APTT (21.0-31.0) Seconds PTT Ratio VBG pH (7.36-7.41) VBG pCO2 (38-50) mmHg VBG pO2 mmHg VBG HCO3 mmol/L VBG O2 Saturation % VBG Base Excess mEq/L Sodium (136-145) mmol/L Potassium (3.5-5.1) mmol/L Chloride (98-107) mmol/L Carbon Dioxide (21-32) mmol/L Anion Gap (3-11) BUN (6-23) mg/dl Creatinine (0.6-1.4) mg/dl Est Cr Clr Drug Dosing ml/min Est GFR ( Amer) ml/min Est GFR (Non-Af Amer) ml/min BUN/Creatinine Ratio (10-20) Glucose (70-99(Fasting)) mg/dl POC Glucose 295 H 301 H* 305 H* (70-99) mg/dl Estimat Average Glucose mg/dl Hemoglobin A1c (4.5-5.6) % Lactate (0.4-2.0) mmol/L Uric Acid (2.6-7.2) mg/dl Calcium (8.6-10.3) mg/dl Magnesium (1.7-2.4) mg/dl Total Bilirubin (0.2-1.0) mg/dl Direct Bilirubin (0-0.2) mg/dl AST (13-39) U/L ALT (7-52) U/L Alkaline Phosphatase (34-104) U/L Troponin I High Sens (0-20) pg/ml C-Reactive Protein (0-0.5) mg/dl Total Protein (6.0-8.3) gm/dl Albumin (3.4-5.0) gm/dl Globulin (2.5-4.0) gm/dl Albumin/Globulin Ratio (0.9-2) Procalcitonin (0-0.5) ng/ml Random Vancomycin (10-20) mcg/ml SARS-CoV-2 (PCR) (Negative) Influenza Type A (PCR) (Neg) Influenza Type B (PCR) (Neg) RSV (RT-PCR) (Neg) Blood Type Antibody Screen 05/21/22 05/21/22 05/21/22 Range/Units 19:21 16:44 15:20 WBC (4.8-10.8) K/ul RBC (4.70-6.10) M/uL Hgb (14.0-18.0) g/dl Hct (42.0-52.0) % MCV (80.0-100.0) fL MCH (25.0-34.0) pg MCHC (32.0-36.0) g/dL RDW Std Deviation (36.4-46.3) fL RDW Coeff of Bianca (11.5-14.5) % Plt Count (130-400) K/uL MPV (9.4-12.4) fL Immature Gran % (Auto) % Neut % (Auto) % Lymph % (Auto) % Hale % (Auto) % Eos % (Auto) % Baso % (Auto) % Neut # (Auto) (1.40-6.50) K/uL Lymph # (Auto) (1.2-3.4) K/uL Hale # (Auto) (0.11-0.59) K/uL Eos # (Auto) (0-0.50) K/uL Baso # (Auto) (0-0.2) K/uL Immature Gran # (Auto) (0.01-0.20) K/uL Toxic Granulation Dohle Bodies Acanthocytes (Spur) ESR (0-20) mm/hr PT (9.0-12.0) Seconds INR (0.9-1.1) APTT (21.0-31.0) Seconds PTT Ratio VBG pH (7.36-7.41) VBG pCO2 (38-50) mmHg VBG pO2 mmHg VBG HCO3 mmol/L VBG O2 Saturation % VBG Base Excess mEq/L Sodium (136-145) mmol/L Potassium (3.5-5.1) mmol/L Chloride (98-107) mmol/L Carbon Dioxide (21-32) mmol/L Anion Gap (3-11) BUN (6-23) mg/dl Creatinine (0.6-1.4) mg/dl Est Cr Clr Drug Dosing ml/min Est GFR ( Amer) ml/min Est GFR (Non-Af Amer) ml/min BUN/Creatinine Ratio (10-20) Glucose (70-99(Fasting)) mg/dl POC Glucose 311 H* 268 H (70-99) mg/dl Estimat Average Glucose mg/dl Hemoglobin A1c (4.5-5.6) % Lactate (0.4-2.0) mmol/L Uric Acid (2.6-7.2) mg/dl Calcium (8.6-10.3) mg/dl Magnesium (1.7-2.4) mg/dl Total Bilirubin (0.2-1.0) mg/dl Direct Bilirubin (0-0.2) mg/dl AST (13-39) U/L ALT (7-52) U/L Alkaline Phosphatase (34-104) U/L Troponin I High Sens 20.7 H D (0-20) pg/ml C-Reactive Protein (0-0.5) mg/dl Total Protein (6.0-8.3) gm/dl Albumin (3.4-5.0) gm/dl Globulin (2.5-4.0) gm/dl Albumin/Globulin Ratio (0.9-2) Procalcitonin (0-0.5) ng/ml Random Vancomycin (10-20) mcg/ml SARS-CoV-2 (PCR) (Negative) Influenza Type A (PCR) (Neg) Influenza Type B (PCR) (Neg) RSV (RT-PCR) (Neg) Blood Type Antibody Screen 05/21/22 05/21/22 05/21/22 Range/Units 15:20 12:52 12:12 WBC (4.8-10.8) K/ul RBC (4.70-6.10) M/uL Hgb (14.0-18.0) g/dl Hct (42.0-52.0) % MCV (80.0-100.0) fL MCH (25.0-34.0) pg MCHC (32.0-36.0) g/dL RDW Std Deviation (36.4-46.3) fL RDW Coeff of Bianca (11.5-14.5) % Plt Count (130-400) K/uL MPV (9.4-12.4) fL Immature Gran % (Auto) % Neut % (Auto) % Lymph % (Auto) % Hale % (Auto) % Eos % (Auto) % Baso % (Auto) % Neut # (Auto) (1.40-6.50) K/uL Lymph # (Auto) (1.2-3.4) K/uL Hale # (Auto) (0.11-0.59) K/uL Eos # (Auto) (0-0.50) K/uL Baso # (Auto) (0-0.2) K/uL Immature Gran # (Auto) (0.01-0.20) K/uL Toxic Granulation Dohle Bodies Acanthocytes (Spur) ESR (0-20) mm/hr PT (9.0-12.0) Seconds INR (0.9-1.1) APTT (21.0-31.0) Seconds PTT Ratio VBG pH 7.38 (7.36-7.41) VBG pCO2 38 (38-50) mmHg VBG pO2 21 mmHg VBG HCO3 23 mmol/L VBG O2 Saturation < 60.0 % VBG Base Excess -2.4 mEq/L Sodium (136-145) mmol/L Potassium (3.5-5.1) mmol/L Chloride (98-107) mmol/L Carbon Dioxide (21-32) mmol/L Anion Gap (3-11) BUN (6-23) mg/dl Creatinine (0.6-1.4) mg/dl Est Cr Clr Drug Dosing ml/min Est GFR ( Amer) ml/min Est GFR (Non-Af Amer) ml/min BUN/Creatinine Ratio (10-20) Glucose (70-99(Fasting)) mg/dl POC Glucose (70-99) mg/dl Estimat Average Glucose mg/dl Hemoglobin A1c (4.5-5.6) % Lactate 1.5 (0.4-2.0) mmol/L Uric Acid (2.6-7.2) mg/dl Calcium (8.6-10.3) mg/dl Magnesium (1.7-2.4) mg/dl Total Bilirubin (0.2-1.0) mg/dl Direct Bilirubin (0-0.2) mg/dl AST (13-39) U/L ALT (7-52) U/L Alkaline Phosphatase (34-104) U/L Troponin I High Sens (0-20) pg/ml C-Reactive Protein (0-0.5) mg/dl Total Protein (6.0-8.3) gm/dl Albumin (3.4-5.0) gm/dl Globulin (2.5-4.0) gm/dl Albumin/Globulin Ratio (0.9-2) Procalcitonin (0-0.5) ng/ml Random Vancomycin (10-20) mcg/ml SARS-CoV-2 (PCR) NEGATIVE (Negative) Influenza Type A (PCR) Negative (Neg) Influenza Type B (PCR) Negative (Neg) RSV (RT-PCR) Negative (Neg) Blood Type Antibody Screen 05/21/22 05/21/22 05/21/22 Range/Units 12:12 11:45 11:43 WBC (4.8-10.8) K/ul RBC (4.70-6.10) M/uL Hgb (14.0-18.0) g/dl Hct (42.0-52.0) % MCV (80.0-100.0) fL MCH (25.0-34.0) pg MCHC (32.0-36.0) g/dL RDW Std Deviation (36.4-46.3) fL RDW Coeff of Bianca (11.5-14.5) % Plt Count (130-400) K/uL MPV (9.4-12.4) fL Immature Gran % (Auto) % Neut % (Auto) % Lymph % (Auto) % Hale % (Auto) % Eos % (Auto) % Baso % (Auto) % Neut # (Auto) (1.40-6.50) K/uL Lymph # (Auto) (1.2-3.4) K/uL Hale # (Auto) (0.11-0.59) K/uL Eos # (Auto) (0-0.50) K/uL Baso # (Auto) (0-0.2) K/uL Immature Gran # (Auto) (0.01-0.20) K/uL Toxic Granulation Dohle Bodies Acanthocytes (Spur) ESR 91 H (0-20) mm/hr PT (9.0-12.0) Seconds INR (0.9-1.1) APTT (21.0-31.0) Seconds PTT Ratio VBG pH (7.36-7.41) VBG pCO2 (38-50) mmHg VBG pO2 mmHg VBG HCO3 mmol/L VBG O2 Saturation % VBG Base Excess mEq/L Sodium (136-145) mmol/L Potassium (3.5-5.1) mmol/L Chloride (98-107) mmol/L Carbon Dioxide (21-32) mmol/L Anion Gap (3-11) BUN (6-23) mg/dl Creatinine (0.6-1.4) mg/dl Est Cr Clr Drug Dosing ml/min Est GFR ( Amer) ml/min Est GFR (Non-Af Amer) ml/min BUN/Creatinine Ratio (10-20) Glucose (70-99(Fasting)) mg/dl POC Glucose (70-99) mg/dl Estimat Average Glucose mg/dl Hemoglobin A1c (4.5-5.6) % Lactate 3.2 H* (0.4-2.0) mmol/L Uric Acid (2.6-7.2) mg/dl Calcium (8.6-10.3) mg/dl Magnesium (1.7-2.4) mg/dl Total Bilirubin (0.2-1.0) mg/dl Direct Bilirubin (0-0.2) mg/dl AST (13-39) U/L ALT (7-52) U/L Alkaline Phosphatase (34-104) U/L Troponin I High Sens (0-20) pg/ml C-Reactive Protein (0-0.5) mg/dl Total Protein (6.0-8.3) gm/dl Albumin (3.4-5.0) gm/dl Globulin (2.5-4.0) gm/dl Albumin/Globulin Ratio (0.9-2) Procalcitonin (0-0.5) ng/ml Random Vancomycin (10-20) mcg/ml SARS-CoV-2 (PCR) (Negative) Influenza Type A (PCR) (Neg) Influenza Type B (PCR) (Neg) RSV (RT-PCR) (Neg) Blood Type B Positive Antibody Screen NEGATIVE 05/21/22 05/21/22 05/21/22 Range/Units 11:43 11:43 11:43 WBC (4.8-10.8) K/ul RBC (4.70-6.10) M/uL Hgb (14.0-18.0) g/dl Hct (42.0-52.0) % MCV (80.0-100.0) fL MCH (25.0-34.0) pg MCHC (32.0-36.0) g/dL RDW Std Deviation (36.4-46.3) fL RDW Coeff of Bianca (11.5-14.5) % Plt Count (130-400) K/uL MPV (9.4-12.4) fL Immature Gran % (Auto) % Neut % (Auto) % Lymph % (Auto) % Hale % (Auto) % Eos % (Auto) % Baso % (Auto) % Neut # (Auto) (1.40-6.50) K/uL Lymph # (Auto) (1.2-3.4) K/uL Hale # (Auto) (0.11-0.59) K/uL Eos # (Auto) (0-0.50) K/uL Baso # (Auto) (0-0.2) K/uL Immature Gran # (Auto) (0.01-0.20) K/uL Toxic Granulation Dohle Bodies Acanthocytes (Spur) ESR (0-20) mm/hr PT 12.8 H (9.0-12.0) Seconds INR 1.2 H (0.9-1.1) APTT 29.3 (21.0-31.0) Seconds PTT Ratio 1.1 VBG pH (7.36-7.41) VBG pCO2 (38-50) mmHg VBG pO2 mmHg VBG HCO3 mmol/L VBG O2 Saturation % VBG Base Excess mEq/L Sodium 131 L (136-145) mmol/L Potassium 3.8 (3.5-5.1) mmol/L Chloride 97 L (98-107) mmol/L Carbon Dioxide 21 (21-32) mmol/L Anion Gap 13 H (3-11) BUN 45 H (6-23) mg/dl Creatinine 2.36 H (0.6-1.4) mg/dl Est Cr Clr Drug Dosing 34.6 ml/min Est GFR ( Amer) 34.1 ml/min Est GFR (Non-Af Amer) 29.5 ml/min BUN/Creatinine Ratio 19.1 (10-20) Glucose 203 H (70-99(Fasting)) mg/dl POC Glucose (70-99) mg/dl Estimat Average Glucose mg/dl Hemoglobin A1c (4.5-5.6) % Lactate (0.4-2.0) mmol/L Uric Acid 8.1 H (2.6-7.2) mg/dl Calcium 8.3 L (8.6-10.3) mg/dl Magnesium 1.8 (1.7-2.4) mg/dl Total Bilirubin 0.6 (0.2-1.0) mg/dl Direct Bilirubin 0.3 H (0-0.2) mg/dl AST 66 H (13-39) U/L ALT 85 H (7-52) U/L Alkaline Phosphatase 396 H (34-104) U/L Troponin I High Sens 108.1 H* (0-20) pg/ml C-Reactive Protein 31.43 H (0-0.5) mg/dl Total Protein 7.5 (6.0-8.3) gm/dl Albumin 3.0 L (3.4-5.0) gm/dl Globulin (2.5-4.0) gm/dl Albumin/Globulin Ratio (0.9-2) Procalcitonin 4.59 H (0-0.5) ng/ml Random Vancomycin (10-20) mcg/ml SARS-CoV-2 (PCR) (Negative) Influenza Type A (PCR) (Neg) Influenza Type B (PCR) (Neg) RSV (RT-PCR) (Neg) Blood Type Antibody Screen 05/21/22 Range/Units 11:43 WBC 20.86 H (4.8-10.8) K/ul RBC 3.75 L (4.70-6.10) M/uL Hgb 9.4 L (14.0-18.0) g/dl Hct 29.2 L (42.0-52.0) % MCV 77.9 L (80.0-100.0) fL MCH 25.1 (25.0-34.0) pg MCHC 32.2 (32.0-36.0) g/dL RDW Std Deviation 41.5 (36.4-46.3) fL RDW Coeff of Bianca 14.6 H (11.5-14.5) % Plt Count 407 H (130-400) K/uL MPV 10.3 (9.4-12.4) fL Immature Gran % (Auto) 1.3 % Neut % (Auto) 93.2 % Lymph % (Auto) 2.0 % Hale % (Auto) 3.2 % Eos % (Auto) 0.1 % Baso % (Auto) 0.2 % Neut # (Auto) 19.45 H (1.40-6.50) K/uL Lymph # (Auto) 0.41 L (1.2-3.4) K/uL Hale # (Auto) 0.66 H (0.11-0.59) K/uL Eos # (Auto) 0.02 (0-0.50) K/uL Baso # (Auto) 0.05 (0-0.2) K/uL Immature Gran # (Auto) 0.27 H (0.01-0.20) K/uL Toxic Granulation 1+ Dohle Bodies 1+ Acanthocytes (Spur) 1+ ESR (0-20) mm/hr PT (9.0-12.0) Seconds INR (0.9-1.1) APTT (21.0-31.0) Seconds PTT Ratio VBG pH (7.36-7.41) VBG pCO2 (38-50) mmHg VBG pO2 mmHg VBG HCO3 mmol/L VBG O2 Saturation % VBG Base Excess mEq/L Sodium (136-145) mmol/L Potassium (3.5-5.1) mmol/L Chloride (98-107) mmol/L Carbon Dioxide (21-32) mmol/L Anion Gap (3-11) BUN (6-23) mg/dl Creatinine (0.6-1.4) mg/dl Est Cr Clr Drug Dosing ml/min Est GFR ( Amer) ml/min Est GFR (Non-Af Amer) ml/min BUN/Creatinine Ratio (10-20) Glucose (70-99(Fasting)) mg/dl POC Glucose (70-99) mg/dl Estimat Average Glucose mg/dl Hemoglobin A1c (4.5-5.6) % Lactate (0.4-2.0) mmol/L Uric Acid (2.6-7.2) mg/dl Calcium (8.6-10.3) mg/dl Magnesium (1.7-2.4) mg/dl Total Bilirubin (0.2-1.0) mg/dl Direct Bilirubin (0-0.2) mg/dl AST (13-39) U/L ALT (7-52) U/L Alkaline Phosphatase (34-104) U/L Troponin I High Sens (0-20) pg/ml C-Reactive Protein (0-0.5) mg/dl Total Protein (6.0-8.3) gm/dl Albumin (3.4-5.0) gm/dl Globulin (2.5-4.0) gm/dl Albumin/Globulin Ratio (0.9-2) Procalcitonin (0-0.5) ng/ml Random Vancomycin (10-20) mcg/ml SARS-CoV-2 (PCR) (Negative) Influenza Type A (PCR) (Neg) Influenza Type B (PCR) (Neg) RSV (RT-PCR) (Neg) Blood Type Antibody Screen
--- NOTE | 2022-05-22 14:12 | Pharmacy Report ---
Pharmacy Glycemic Short Note 2 - Date of Service May 22, 2022 - Glycemic Short BSG Results (Last 24 hours): 05/21/22 05/21/22 05/21/22 16:44 19:21 19:23 Glucose POC Glucose 268 H 311 H* 305 H* 05/21/22 05/22/22 05/22/22 20:51 00:05 03:45 Glucose POC Glucose 301 H* 295 H 277 H 05/22/22 05/22/22 05/22/22 05:35 07:21 11:21 Glucose 229 H POC Glucose 216 H 226 H OUTPATIENT ANTIDIABETIC REGIMEN: * Lantus 21 units HS * Novolog 8-10 units TIDM * HbA1c 10,2% 05/22/22 ASSESSMENT: * Patient is a 56 YOM admitted for cellulitis currently receiving vancomycin and cefepime with a history of T1DM. Pharmacy has been consulted for glycemic management while inpatient. * The patient received 25 units of insulin yesterday, of which 15 were basal * Stressors include infection receiving antibiotics and improving renal function due to RAMON * Fasting BSG this morning was above goal, patient only received 75% of basal insulin dose yesterday, additional 6 units ordered this AM, continue with 21 units HS * Mealtime BSGs elevated, Novolog parameters tightened as below PLAN FOR INPATIENT GLYCEMIC CONTROL: * Hold outpatient oral diabetes medications * Basal insulin * Lantus 21 units SQ HS * Bolus insulin * NovoLog per scale ACHS or Q6hrs while NPO * Goal Range: Low 110 mg/dL - High 140 mg/dL * Correction Factor: 20 mg/dL/unit * Nutritional / Prandial insulin per carb ratio of 1 unit per 7 grams CHO consumed
[2022-05-22] MEDS ORDERED: ACETAMINOPHEN 325 MG TAB PO PRN (14:20)
--- NOTE | 2022-05-22 14:53 | Hospitalist Progress Note ---
Date of Service May 22, 2022 Assessment & Plan (1) Sepsis: (2) Cellulitis: (3) Hx of heart artery stent: (4) Type 1 diabetes mellitus: (5) HLD (hyperlipidemia): (6) Hypertension: Plan 56 y/o with complex unresolved cellulitis; complicated with delayed wound healing with T1DM. Initial cellulitis dx 02/08 and completed oral abx course. Right foot CT and lower extremity CT: *1. No acute bony abnormality is identified. *2. Soft tissue edema throughout the visualized right lower extremity is typical for cellulitis. *3. No organized fluid collection is seen to indicate abscess. *4. No soft tissue gas is seen. No osteomyelitis. Ortho consult placed; no indication for sx at this time. ID consult; cont IV Cefepime and Vanco. Wound and blood cx sent. Trend labs. Severe Sepsis POA: Cellulitis of the right lower leg with multiple ulcerated areas In ED hypotensive and responded to 2.5 LNSB. Leukocytosis WBC 20.86, Na+ 131, Creatinine 2.36. unknown baseline. Right Foot CT and lower extremity CT: *1. No acute bony abnormality is identified. *2. Soft tissue edema throughout the visualized right lower extremity is typical for cellulitis. *3. No organized fluid collection is seen to indicate abscess. *4. No soft tissue gas is seen. No osteomyelitis. Has been on cefepime and vancomycin and ID consult has been placed Clinically better and current medications will be continued Wound cultures and blood cultures are pending Doppler documented presence of dorsalis pedis and tibialis posterior arteries pulsations Lactate improved RAMON secondary to Sepsis: Creatinine was 2.36 on admission With gentle IV fluid that has been improved to 1.81 Expected to improve further Hyponatremia: Na+ 131; suspect increase with fluid resuscitation; will trend BMP Sodium remains at 131 We will monitor CAD s/p stent placement: stent placement x2 in 11/2021 in [place] takes baby ASA and Prasugrel; continue INR 1.2 Troponin elevated 108; will trend x1; do not suspect ACS; rather ischemic demand d/t sepsis Troponin has been negative Diabetes Mellitus, type 1: uses Dexcom monitor. sugars run 200-294 over last 48 hours Uses SSI and Lantus at home; typically 8-10 units in AM and 21 units of Lantus Nightly Pt removed Dexcom monitor; will place on SSI here with ACHS FSBS Check A1C in AM--high at 10.2 HTN: Hypotensive in ED; takes Enestro, Carvedolol, and Losartan; hold for now Resume in AM Hold Enestro until renal function improves Disposition: PCP: In [place] Code status: Full Code VTE Prophylaxis: Heparin SQ Admission and Anticipated Discharge Date Admission Date: May 21, 2022 Subjective 05/22/2022 The patient was seen and examined in telemetry unit He is from [place] and wants to leave the hospital on He was admitted with right leg cellulitis and has been feeling much better since admission Denies any fever and or chills but does have minimal pain in the leg Denies any chest pain, shortness of breath or palpitation Review of Systems Review of Systems: All systems reviewed and are unremarkable except as noted below Musculoskeletal: Right leg is swollen with edema and redness and ulcerations in multiple areas Physical Exam Physical Exam: Lying in bed comfortably Constitutional: well developed, well nourished, + ill appearing and average body habitus Eyes: PERRL, conjunctivae normal, anicteric sclerae ENMT: external ear and nose normal, oropharynx normal Neck: trachea midline, no thyromegaly Respiratory: no respiratory distress Auscultation: lungs clear to auscultation bilaterally Cardiovascular: Rate/Rhythm: regular rate and regular rhythm; not tachycardic Heart Sounds: normal S1 and normal S2; no murmur Extremities: + edema (Right leg edema with redness and tenderness,multiple ulcerations as in pic) Gastrointestinal (Abdomen): Inspection/Auscultation: normal bowel sounds; abdomen not distended Percussion/Palpation: abdomen soft; abdomen nontender Musculoskeletal: No acute arthritis involving any joint Neurologic: Alert, awake and oriented x3. No focal sensory or no motor deficit appreciated Lymphatic: no cervical or axillary lymphadenopathy Results & Data Results & Data Vital Signs (Past 12 Hours) Vital Signs Temp Pulse Pulse Resp BP Pulse Ox O2 Del Method 05/22/22 12:02 36.8 C 73 18 109/65 100 Room Air 05/22/22 07:59 37.8 C H 87 16 107/66 97 Room Air 05/22/22 07:46 88 05/22/22 04:00 37.3 C 16 107/65 99 Room Air Laboratory Results Short CBC 05/22/22 Range/Units 05:35 WBC 16.26 H (4.8-10.8) K/ul Hgb 8.1 L (14.0-18.0) g/dl Hct 25.0 L (42.0-52.0) % Plt Count 336 (130-400) K/uL BMP 05/22/22 05:35 Sodium 131 L Potassium 3.9 Chloride 102 Carbon Dioxide 20 L BUN 46 H Creatinine 1.81 H D Glucose 229 H Calcium 7.4 L Liver Function 05/22/22 Range/Units 05:35 Total Bilirubin 0.4 (0.2-1.0) mg/dl AST 27 (13-39) U/L ALT 50 (7-52) U/L Alkaline Phosphatase 265 H (34-104) U/L Albumin 2.3 L (3.4-5.0) gm/dl Medications Administered Current Inpatient Medications Acetaminophen (Acetaminophen 325 Mg Tab) 650 mg PO Q4H PRN PRN Reason: Pain or Fever Stop: 06/21/22 14:19 Al Hydrox/Mg Hydrox/Simethicone (Aluminum/Magnesium Susp 30 Ml Udc) 15 ml PO Q4H PRN PRN Reason: Dyspepsia Stop: 06/20/22 14:55 Albuterol (Albuterol 0.083% Nebu Soln 3 Ml Vial) 2.5 mg INH Q4H PRN; Protocol PRN Reason: Wheezing Stop: 06/20/22 16:17 Aspirin (Aspirin 81 Mg Ectab) 81 mg PO DAILY DEVONTE Stop: 06/21/22 08:59 Last Admin: 05/22/22 08:44 Dose: 81 mg Carvedilol (Carvedilol 6.25 Mg Tab) 6.25 mg PO BID DEVONTE Stop: 06/20/22 20:59 Last Admin: 05/22/22 08:44 Dose: 6.25 mg Dextrose (Dextrose 50% 50 Ml Syringe) 25 - 50 ml IV UD PRN; Protocol PRN Reason: Hypoglycemia Protocol Stop: 06/20/22 16:30 Ergocalciferol (Ergocalciferol 50,000 Units 1250 Mcg Cap) 50,000 units PO Q7D DEVONTE Stop: 06/21/22 08:59 Last Admin: 05/22/22 08:44 Dose: 50,000 units Glucagon (Glucagon For Inj 1 Mg Vial) 1 mg SQ UD PRN; Protocol PRN Reason: Hypoglycemia Protocol Stop: 06/20/22 16:30 Glucose (Glucose 40% Gel 15 Gm Tube) 15 - 30 gm PO UD PRN; Protocol PRN Reason: Hypoglycemia Protocol Stop: 06/20/22 16:30 Glucose (Glucose 10 Tab/Tube) 4 - 8 tab PO UD PRN; Protocol PRN Reason: Hypoglycemia Treatment Stop: 06/20/22 16:30 Heparin Sodium (Porcine) (Heparin Sod 5,000 Unit/0.5 Ml Vial) 5,000 units SQ Q12 [facility]ONTE Stop: 06/20/22 20:59 Last Admin: 05/22/22 08:44 Dose: 5,000 units Cefepime HCl 2,000 mg/ Syringe 20 mls @ 5 mls/min IV Q12H DEVONTE; Protocol Stop: 05/29/22 00:59 Last Admin: 05/22/22 13:00 Dose: 5 mls/min Sodium Chloride (Nss 1000ml) 1,000 mls @ 60 mls/hr IV .[id number] [facility] Stop: 05/23/22 01:43 Last Admin: 05/22/22 09:19 Dose: 60 mls/hr Vancomycin HCl 1,500 mg/ (Sodium Chloride) 530 mls @ 200 mls/hr IV Q24H DEVONTE; Protocol Stop: 05/28/22 23:59 Insulin Aspart (Insulin Aspart Per Unit Charge) 0 units SC ACHS [facility] Stop: 06/20/22 16:59 Last Admin: 05/22/22 13:00 Dose: 13 units Insulin Glargine (Lantus Per Unit Charge) 21 units SQ HS [facility] Stop: 06/21/22 20:59 Magnesium Hydroxide (Magnesium Hydroxide Susp 30 Ml Udc) 30 ml PO Q12H PRN PRN Reason: Constipation Stop: 06/20/22 14:55 Miscellaneous (Carbohydrates For Hypoglycemia ) 15 - 30 gm PO UD PRN PRN Reason: Hypoglycemia Protocol Stop: 06/20/22 16:30 Miscellaneous Information (Pharmacy Glycemic Mgmt Consult) 1 each N/A UD PRN; Protocol PRN Reason: Consult. Pt starr Stop: 06/20/22 16:30 Miscellaneous Information (Vancomycin Consult Active) 1 each N/A UD PRN PRN Reason: Consult Stop: 06/20/22 17:20 Ondansetron HCl (Ondansetron Inj 2 Mg/Ml 2 Ml Vial) 4 mg IV Q6H PRN PRN Reason: Nausea Stop: 06/20/22 14:55 Oxycodone HCl (Oxycodone Hcl Ir 5 Mg Tab (Immediate Release)) 5 mg PO Q6H PRN PRN Reason: Pain Stop: 05/23/22 06:00 Last Admin: 05/22/22 08:55 Dose: 5 mg Polyethylene Glycol (Polyethylene (Miralax) 17 Gm Pack) 17 gm PO DAILY PRN PRN Reason: Constipation Stop: 06/20/22 14:55 Prasugrel (Prasugrel Tab 10 Mg Tab) 10 mg PO DAILY [facility]ONTE Stop: 06/21/22 08:59 Last Admin: 05/22/22 08:45 Dose: 10 mg
[2022-05-22] MEDS ORDERED: LANTUS PER UNIT CHARGE SQ SCH ×2 (21:00)
[2022-05-22 21:46] LABS: Appearance Urine Cloudy (Clear); Bacteria Urine Automated Negative (Negative); Bilirubin Urine Negative (Negative); Blood Urine 1+ (Negative); Color Urine Dark Yellow; Epithelial Cell Urine Auto >30 /lpf (0-5); Glucose Urine UA Trace (Negative); Ketones Urine Trace (Negative); Leukocyte Esterase Urine Trace (Negative); Nitrite Urine Negative (Negative); Protein Urine 1+ (Negative); RBC Urine Automated 0-4 /hpf (0-4); Specific Gravity Urine 1.022 (1.000-1.030); Urobilinogen Urine Negative (Negative); pH Urine 5.5 (4.5-7.5)
[2022-05-23] MEDS: CARBOHYDRATES FOR HYPOGLYCEMIA PO PRN ×2 (00:20→00:40)
[2022-05-23] MEDS: CEFEPIME 2,000 MG in SYRINGE 0 ML IV SCH (01:07)
[2022-05-23] MEDS ORDERED: INSULIN ASPART PER UNIT CHARGE SC SCH ×2 (02:00→04:00)
[2022-05-23] MEDS ORDERED: VANCOMYCIN LEVEL ONE (04:00)
[2022-05-23 06:55] LABS: Creatinine Clr Calc Pharmacy 51.7 ml/min; Est GFR (African American) 51.5 ml/min; Est GFR (Non-African American) 44.4 ml/min
[2022-05-23] MEDS: VANCOMYCIN HCL 1,500 MG in SODIUM CHLORIDE 0.9% 500 ML IV SCH (08:17)
--- NOTE | 2022-05-23 08:47 | Pharmacy Report ---
Pharmacy Glycemic Short Note 2 - Date of Service May 23, 2022 - Glycemic Short BSG Results (Last 24 hours): 05/22/22 05/22/22 05/22/22 11:21 16:25 20:17 POC Glucose 226 H 184 H 81 05/23/22 05/23/22 05/23/22 00:15 00:19 00:35 POC Glucose 37 L* 39 L* 44 L* 05/23/22 05/23/22 05/23/22 00:58 01:16 04:03 POC Glucose 60 L* 78 196 H 05/23/22 07:23 POC Glucose 237 H OUTPATIENT ANTIDIABETIC REGIMEN: * Lantus 21 units HS * Novolog 8-10 units TIDM HbA1c 10.2% 05/22/22 ASSESSMENT: 05/23/22: * BSGs trended down throughout the day yesterday * Unfortunately, hypoglycemic episode overnight (BSG of 37 mg/dL) for which patient was diaphoretic. Improved with juice, glucose tabs. * Likely related to Novolog parameters being too tight (will loosen today). Somewhat surprising given assumed basal deficiency from missed basal for several days prior to admission. * Continues on vancomycin and cefepime 05/22/22: * Patient is a 56 YOM admitted for cellulitis currently receiving vancomycin and cefepime with a history of T1DM. Pharmacy has been consulted for glycemic management while inpatient. * The patient received 25 units of insulin yesterday, of which 15 were basal * Stressors include infection receiving antibiotics and improving renal function due to RAMON * Fasting BSG this morning was above goal, patient only received 75% of basal insulin dose yesterday, additional 6 units ordered this AM, continue with 21 units HS * Mealtime BSGs elevated, Novolog parameters tightened as below PLAN FOR INPATIENT GLYCEMIC CONTROL: * Hold outpatient oral diabetes medications * Basal insulin - split BID * Lantus 10 units SC BID * Bolus insulin * NovoLog per scale ACHS or Q6hrs while NPO * Goal Range: Low 110 mg/dL - High 140 mg/dL * Correction Factor: 30 mg/dL/unit * Nutritional / Prandial insulin per carb ratio of 1 unit per 10 grams CHO consumed
[2022-05-23] MEDS: ASPIRIN 81 MG ECTAB PO SCH (08:48)
[2022-05-23] MEDS: carvediloL 6.25 MG TAB PO SCH ×2 (08:48→20:37)
[2022-05-23] MEDS: HEPARIN SOD 5,000 UNIT/0.5 ML VIAL SQ SCH ×2 (08:49→20:38)
[2022-05-23] MEDS: PRASugrel TAB 10 MG TAB PO SCH (08:49)
[2022-05-23] MEDS: INSULIN ASPART PER UNIT CHARGE SC SCH ×4 (09:24→21:02)
[2022-05-23] MEDS: LANTUS PER UNIT CHARGE SQ SCH ×2 (09:25→21:02)
--- NOTE | 2022-05-23 12:34 | Pharmacy Report ---
Pharmacy PK ABX Note - Date of Service May 23, 2022 - Assessment and Plan Assessment 05/23: * Cefepime discontinued, will monitor clinical status while on vancomycin monotherapy. Add back cefepime if patient deteriorates, per ID. * RAMON continues to resolve (SCr 2.36 -> 1.81 -> 1.68 mg/dL) * Blood cultures show no growth to date, no growth in urine culture (05/22) 05/22: 56 year old M receiving vancomycin and cefepime for treatment of sepsis secondary to right lower extremity cellulitis. Blood cultures pending. Patient with RAMON, (1.13 in Mar 12 per [facility] records). Day #3 of antimicrobial therapy. Plan Vancomycin * Current regimen: 1500 mg IV every 24 hours * Random level obtained 05/23/22 resulted as 11.8 mcg/mL. This is predicted to achieve target AUC/ANTHAN of 400-600 mg/L.hr * Predicted AUC at steady state: 519 mg/L.hr * Continue 1500 mg IV every 24 hours * Repeat random level ordered for: 05/25/22 or sooner if deemed necessary by tomorrow's lab results Pharmacy will continue to follow and will adjust dose/frequency as necessary. Thank you. Pharmacy has transitioned to AUC monitoring for vancomycin. AUC/NATHAN is the preferred PK/PD target and is associated with decreased risk of nephrotoxicity compared to traditional trough targets.
[2022-05-23] MEDS: oxyCODONE HCL IR 5 MG TAB (IMMEDIATE RELEASE) PO PRN ×2 (14:00→20:40)
--- NOTE | 2022-05-23 20:15 | Hospitalist Progress Note ---
Date of Service May 23, 2022 Assessment & Plan (1) Sepsis: (2) Cellulitis: (3) Hx of heart artery stent: (4) Type 1 diabetes mellitus: (5) HLD (hyperlipidemia): (6) Hypertension: Plan 56 y/o with complex unresolved cellulitis; complicated with delayed wound healing with T1DM. Initial cellulitis dx 02/08 and completed oral abx course. Right foot CT and lower extremity CT: *1. No acute bony abnormality is identified. *2. Soft tissue edema throughout the visualized right lower extremity is typical for cellulitis. *3. No organized fluid collection is seen to indicate abscess. *4. No soft tissue gas is seen. No osteomyelitis. Started on empiric IV antibiotics pending clx results, ortho and ID evaluated. Severe Sepsis POA: Cellulitis of the right lower leg with multiple ulcerated areas In ED hypotensive and responded to 2.5 LNSB. Leukocytosis WBC 20.86, Na+ 131, Creatinine 2.36. unknown baseline. Right Foot CT and lower extremity CT: *1. No acute bony abnormality is identified. *2. Soft tissue edema throughout the visualized right lower extremity is typical for cellulitis. *3. No organized fluid collection is seen to indicate abscess. *4. No soft tissue gas is seen. No osteomyelitis. Doppler documented presence of dorsalis pedis and tibialis posterior arteries pulsations Started on cefepime and vancomycin with improvement Ortho did not recommend any intervention as of now ID recommended discontinuing cefepime and continue vanc for now. Add back cefepime if clinical status changes. Blood cultures negative Clinically improving Pain controlled with pain meds RAMON secondary to Sepsis: Creatinine was 2.36 on admission With gentle IV fluid that has been improved to 1.81->1.68 Monitor Hyponatremia: Na+ 131; recheck in am CAD s/p stent placement: stent placement x2 in 11/2021 in [place] takes baby ASA and Prasugrel; continue Uncontrolled Diabetes Mellitus, type 1 with peripheral neuropathy: A1C 10.2 uses Dexcom monitor. sugars run 200-294 over last 48 hours Uses SSI and Lantus at home; typically 8-10 units in AM and 21 units of Lantus Nightly Pt removed Dexcom monitor; continue lantus, SSI- adjust insulin as indicated HTN: Hypotensive in ED; takes Enestro, Carvedolol, and Losartan; hold for now Hold Enestro until renal function improves BP improved Dispo- continue medsurg tele, continue iv antibiotics pending further clinical improvement Code status: Full Code VTE Prophylaxis: Heparin SQ Admission and Anticipated Discharge Date Admission Date: May 21, 2022 Subjective Patient was seen and examined at bedside. States has peripheral neuropathy but still having intermittent pain, controlled with pain medication. States his cellulitis looks much better than on admission. He is from [place] visiting his family here and states he hopes to get discharged tomorrow as his has to go back to work and he does not want too much trips for her. Review of Systems Review of Systems: All systems reviewed & are unremarkable except as noted in Subjective Physical Exam Physical Exam: General: Sitting comfortably in bed, not in acute distress, on room air HEENT: [place], MMM Chest: Clear breath sounds bilaterally, no wheezes or crackles CVS: Regular rate and rhythm, normal heart sounds, no murmur Abdomen: Soft, non tender, not distended, normal bowel sounds Neuro: Awake, alert, oriented, conversing well, non focal Extremities: Rt foot covered with dressing, right toes cellulitis noted- 4th toe still dusky, other toes improved per patient- prior images from admission reviewed. Results & Data Results & Data Vital Signs (Past 12 Hours) Vital Signs Temp Pulse Resp BP Pulse Ox O2 Del Method 05/23/22 19:00 36.4 C L 68 17 108/71 100 Room Air 05/23/22 15:43 37.5 C 85 18 96/54 L 99 Room Air 05/23/22 10:59 36.8 C 84 18 97/60 L 100 Room Air Laboratory Results BMP 05/23/22 05:40 Creatinine 1.68 H Urine 05/22/22 Range/Units 20:50 Urine Color Dark Yellow Urine Appearance Cloudy A (Clear) Urine pH 5.5 (4.5-7.5) Ur Specific [place] 1.022 (1.000-1.030) Urine Protein 1+ H (Negative) Urine Glucose (UA) Trace H (Negative) Medications Administered Current Inpatient Medications Acetaminophen (Acetaminophen 325 Mg Tab) 650 mg PO Q4H PRN PRN Reason: Pain or Fever Stop: 06/21/22 14:19 Last Admin: 05/22/22 20:48 Dose: 650 mg Al Hydrox/Mg Hydrox/Simethicone (Aluminum/Magnesium Susp 30 Ml Udc) 15 ml PO Q4H PRN PRN Reason: Dyspepsia Stop: 06/20/22 14:55 Albuterol (Albuterol 0.083% Nebu Soln 3 Ml Vial) 2.5 mg INH Q4H PRN; Protocol PRN Reason: Wheezing Stop: 06/20/22 16:17 Aspirin (Aspirin 81 Mg Ectab) 81 mg PO DAILY DEVONTE Stop: 06/21/22 08:59 Last Admin: 05/23/22 08:48 Dose: 81 mg Carvedilol (Carvedilol 6.25 Mg Tab) 6.25 mg PO BID DEVONTE Stop: 06/20/22 20:59 Last Admin: 05/23/22 08:48 Dose: 6.25 mg Dextrose (Dextrose 50% 50 Ml Syringe) 25 - 50 ml IV UD PRN; Protocol PRN Reason: Hypoglycemia Protocol Stop: 06/20/22 16:30 Ergocalciferol (Ergocalciferol 50,000 Units 1250 Mcg Cap) 50,000 units PO Q7D DEVONTE Stop: 06/21/22 08:59 Last Admin: 05/22/22 08:44 Dose: 50,000 units Glucagon (Glucagon For Inj 1 Mg Vial) 1 mg SQ UD PRN; Protocol PRN Reason: Hypoglycemia Protocol Stop: 06/20/22 16:30 Glucose (Glucose 40% Gel 15 Gm Tube) 15 - 30 gm PO UD PRN; Protocol PRN Reason: Hypoglycemia Protocol Stop: 06/20/22 16:30 Glucose (Glucose 10 Tab/Tube) 4 - 8 tab PO UD PRN; Protocol PRN Reason: Hypoglycemia Treatment Stop: 06/20/22 16:30 Last Admin: 05/23/22 01:00 Dose: 4 tab Heparin Sodium (Porcine) (Heparin Sod 5,000 Unit/0.5 Ml Vial) 5,000 units SQ Q12 DEVONTE Stop: 06/20/22 20:59 Last Admin: 05/23/22 08:49 Dose: Not Given Vancomycin HCl 1,500 mg/ (Sodium Chloride) 530 mls @ 200 mls/hr IV Q24H DEVONTE; Protocol Stop: 05/28/22 23:59 Last Infusion: 05/23/22 10:56 Dose: Infused Insulin Aspart (Insulin Aspart Per Unit Charge) 0 units SC ACHS [facility]ONTE Stop: 06/20/22 16:59 Last Admin: 05/23/22 17:42 Dose: 5 units Insulin Glargine (Lantus Per Unit Charge) 10 units SQ BID [facility] Stop: 06/22/22 08:59 Last Admin: 05/23/22 09:25 Dose: 10 units Magnesium Hydroxide (Magnesium Hydroxide Susp 30 Ml Udc) 30 ml PO Q12H PRN PRN Reason: Constipation Stop: 06/20/22 14:55 Miscellaneous (Carbohydrates For Hypoglycemia ) 15 - 30 gm PO UD PRN PRN Reason: Hypoglycemia Protocol Stop: 06/20/22 16:30 Last Admin: 05/23/22 00:40 Dose: 30 gm Miscellaneous Information (Pharmacy Glycemic Mgmt Consult) 1 each N/A UD PRN; Protocol PRN Reason: Consult. Pt starr Stop: 06/20/22 16:30 Miscellaneous Information (Vancomycin Consult Active) 1 each N/A UD PRN PRN Reason: Consult Stop: 06/20/22 17:20 Ondansetron HCl (Ondansetron Inj 2 Mg/Ml 2 Ml Vial) 4 mg IV Q6H PRN PRN Reason: Nausea Stop: 06/20/22 14:55 Oxycodone HCl (Oxycodone Hcl Ir 5 Mg Tab (Immediate Release)) 5 mg PO Q6H PRN PRN Reason: Severe Pain (Scale 7, 8, 9,10) Stop: 06/06/22 13:51 Last Admin: 05/23/22 14:00 Dose: 5 mg Polyethylene Glycol (Polyethylene (Miralax) 17 Gm Pack) 17 gm PO DAILY PRN PRN Reason: Constipation Stop: 06/20/22 14:55 Prasugrel (Prasugrel Tab 10 Mg Tab) 10 mg PO DAILY [facility] Stop: 06/21/22 08:59 Last Admin: 05/23/22 08:49 Dose: 10 mg
[2022-05-24 06:29] LABS: Hematocrit (blood only) 24.8 % (42.0-52.0); Mean Corpuscular Hemoglobin 24.8 pg (25.0-34.0); Mean Corpuscular Hgb Conc 32.3 g/dL (32.0-36.0); Mean Platelet Volume 9.8 fL (9.4-12.4); Platelet Count 301 K/uL (130-400); RDW Coefficient of Variation 15.5 % (11.5-14.5); RDW Standard Deviation 43.3 fL (36.4-46.3); Red Blood Count 3.22 M/uL (4.70-6.10); White Blood Count 17.67 K/ul (4.8-10.8)
[2022-05-24] MEDS: oxyCODONE HCL IR 5 MG TAB (IMMEDIATE RELEASE) PO PRN ×3 (06:40→20:45)
[2022-05-24 06:46] LABS: BUN Creatinine Ratio 28.2 (10-20); Calcium 7.7 mg/dl (8.6-10.3); Creatinine Clr Calc Pharmacy 61.1 ml/min; Est GFR (African American) 56.3 ml/min; Est GFR (Non-African American) 48.6 ml/min; Magnesium 1.8 mg/dl (1.7-2.4)
--- NOTE | 2022-05-24 08:36 | Pharmacy Report ---
Pharmacy Glycemic Short Note 2 - Date of Service May 24, 2022 - Glycemic Short BSG Results (Last 24 hours): 05/23/22 05/23/22 05/23/22 12:01 16:35 20:04 Glucose POC Glucose 189 H 153 H 151 H 05/24/22 05/24/22 05:29 07:31 Glucose 151 H POC Glucose 167 H OUTPATIENT ANTIDIABETIC REGIMEN: * Lantus 21 units HS * Novolog 8-10 units TIDM HbA1c 10.2% 05/22/22 ASSESSMENT: 05/24/22: * Glycemic control improved yesterday. Patient received a total of 33 units of insulin (10 units Lantus + 23 units Novolog) * Fasting BSG of 167 mg/dL. This is slightly above goal. Patient did not receive evening dose of Lantus on 05/23 (unclear why). * Post prandial BSGs seemed to improve yesterday. Trending up today. I suspect significant decrease in basal insulin yesterday is playing a role in this. Will order an additional 5 units of Lantus for this evening and tighten carb coverage. 05/23/22: * BSGs trended down throughout the day yesterday * Unfortunately, hypoglycemic episode overnight (BSG of 37 mg/dL) for which patient was diaphoretic. Improved with juice, glucose tabs. * Likely related to Novolog parameters being too tight (will loosen today). Somewhat surprising given assumed basal deficiency from missed basal for several days prior to admission. * Continues on vancomycin and cefepime 05/22/22: * Patient is a 56 YOM admitted for cellulitis currently receiving vancomycin and cefepime with a history of T1DM. Pharmacy has been consulted for glycemic management while inpatient. * The patient received 25 units of insulin yesterday, of which 15 were basal * Stressors include infection receiving antibiotics and improving renal function due to RAMON * Fasting BSG this morning was above goal, patient only received 75% of basal insulin dose yesterday, additional 6 units ordered this AM, continue with 21 units HS * Mealtime BSGs elevated, Novolog parameters tightened as below PLAN FOR INPATIENT GLYCEMIC CONTROL: * Hold outpatient oral diabetes medications * Basal insulin * Lantus 15 units SQ this morning * Lantus 5 units SQ this evening * Plan to transition back to once daily basal dosing on 05/25 * Bolus insulin * NovoLog per scale ACHS or Q6hrs while NPO * Goal Range: Low 110 mg/dL - High 140 mg/dL * Correction Factor: 30 mg/dL/unit * Nutritional / Prandial insulin per carb ratio of 1 unit per 9 grams CHO consumed
[2022-05-24] MEDS: INSULIN ASPART PER UNIT CHARGE SC SCH ×4 (08:41→20:39)
[2022-05-24] MEDS: LANTUS PER UNIT CHARGE SQ SCH ×2 (09:20→09:39)
[2022-05-24] MEDS: carvediloL 6.25 MG TAB PO SCH ×2 (09:34→20:34)
[2022-05-24] MEDS: PRASugrel TAB 10 MG TAB PO SCH (09:35)
[2022-05-24] MEDS: ASPIRIN 81 MG ECTAB PO SCH (09:35)
[2022-05-24] MEDS: HEPARIN SOD 5,000 UNIT/0.5 ML VIAL SQ SCH ×2 (09:36→20:34)
[2022-05-24] MEDS: VANCOMYCIN HCL 1,500 MG in SODIUM CHLORIDE 0.9% 500 ML IV SCH (10:21)
[2022-05-24] MEDS: PANTOprazole 40 MG TAB PO SCH (10:21)
--- NOTE | 2022-05-24 13:02 | Hospitalist Progress Note ---
Date of Service May 24, 2022 Assessment & Plan (1) Sepsis: (2) Cellulitis: (3) Hx of heart artery stent: (4) Type 1 diabetes mellitus: (5) HLD (hyperlipidemia): (6) Hypertension: Plan 56 y/o with complex unresolved cellulitis; complicated with delayed wound healing with T1DM. Initial cellulitis dx 02/08 and completed oral abx course. Right foot CT and lower extremity CT: *1. No acute bony abnormality is identified. *2. Soft tissue edema throughout the visualized right lower extremity is typical for cellulitis. *3. No organized fluid collection is seen to indicate abscess. *4. No soft tissue gas is seen. No osteomyelitis. Started on empiric IV antibiotics pending clx results, ortho and ID evaluated. Severe Sepsis POA: Cellulitis of the right lower leg with multiple ulcerated areas In ED hypotensive and responded to 2.5 LNSB. Leukocytosis WBC 20.86, Na+ 131, Creatinine 2.36. unknown baseline. Right Foot CT and lower extremity CT: *1. No acute bony abnormality is identified. *2. Soft tissue edema throughout the visualized right lower extremity is typical for cellulitis. *3. No organized fluid collection is seen to indicate abscess. *4. No soft tissue gas is seen. No osteomyelitis. Doppler documented presence of dorsalis pedis and tibialis posterior arteries pulsations Started on cefepime and vancomycin with improvement Ortho did not recommend any intervention as of now ID recommended discontinuing cefepime and continue vanc for now. Add back cefepime if clinical status changes. Blood cultures negative Clinically improving, continuing Vanc for now- will reach out to ID for further antibiotic recommendation tomorrow as patient is planning to leave due to personal issues- recheck labs in am Pain controlled with pain meds RAMON secondary to Sepsis: Creatinine was 2.36 on admission With gentle IV fluid that has been improved to 2.36-> 1.81->1.68->1.56 Monitor Hyponatremia: stable at 130. CAD s/p stent placement: stent placement x2 in 11/2021 in [place] takes baby ASA and Prasugrel; continue Uncontrolled Diabetes Mellitus, type 1 with peripheral neuropathy: A1C 10.2 uses Dexcom monitor. sugars run 200-294 over last 48 hours Uses SSI and Lantus at home; typically 8-10 units in AM and 21 units of Lantus Nightly Pt removed Dexcom monitor; continue lantus, SSI- adjust insulin as indicated HTN: Hypotensive in ED; takes Enestro, Carvedolol, and Losartan; hold for now Hold Enestro until renal function improves BP improved and stable Dispo- continue medsurg tele, continue iv antibiotics pending further clinical improvement Code status: Full Code VTE Prophylaxis: Heparin SQ Admission and Anticipated Discharge Date Admission Date: May 21, 2022 Subjective Patient seen and examined at bedside. Still having seeping through the dressing, which was changed last night. Still with pain. States he plans to leave tomorrow, AMA if it comes to that as her has to show up to work in [place] and he will get admitted there. He states his wound looks much better from admission. Review of Systems Review of Systems: All systems reviewed & are unremarkable except as noted in Subjective Physical Exam Physical Exam: General: Sitting comfortably in bed, not in acute distress, on room air HEENT: DESTIN, MMM Chest: Clear breath sounds bilaterally, no wheezes or crackles CVS: Regular rate and rhythm, normal heart sounds, no murmur Abdomen: Soft, non tender, not distended, normal bowel sounds Neuro: Awake, alert, oriented, conversing well, non focal Extremities: Rt foot wound noted with seeping and dusky- prior images from admission reviewed. Results & Data Results & Data Vital Signs (Past 12 Hours) Vital Signs Temp Pulse Pulse Resp BP Pulse Ox O2 Del Method 05/24/22 12:04 37.1 C 71 17 103/61 99 Room Air 05/24/22 08:22 37.2 C 71 18 119/67 96 Room Air 05/24/22 05:42 69 05/24/22 02:42 37.2 C 75 17 123/79 98 Room Air Laboratory Results Short CBC 05/24/22 Range/Units 05:29 WBC 17.67 H (4.8-10.8) K/ul Hgb 8.0 L (14.0-18.0) g/dl Hct 24.8 L (42.0-52.0) % Plt Count 301 (130-400) K/uL BMP 05/24/22 05:29 Sodium 130 L Potassium 4.0 Chloride 103 Carbon Dioxide 18 L BUN 44 H Creatinine 1.56 H Glucose 151 H Calcium 7.7 L Medications Administered Current Inpatient Medications Acetaminophen (Acetaminophen 325 Mg Tab) 650 mg PO Q4H PRN PRN Reason: Pain or Fever Stop: 06/21/22 14:19 Last Admin: 05/22/22 20:48 Dose: 650 mg Al Hydrox/Mg Hydrox/Simethicone (Aluminum/Magnesium Susp 30 Ml Udc) 15 ml PO Q4H PRN PRN Reason: Dyspepsia Stop: 06/20/22 14:55 Albuterol (Albuterol 0.083% Nebu Soln 3 Ml Vial) 2.5 mg INH Q4H PRN; Protocol PRN Reason: Wheezing Stop: 06/20/22 16:17 Aspirin (Aspirin 81 Mg Ectab) 81 mg PO DAILY DEVONTE Stop: 06/21/22 08:59 Last Admin: 05/24/22 09:35 Dose: 81 mg Carvedilol (Carvedilol 6.25 Mg Tab) 6.25 mg PO BID DEVONTE Stop: 06/20/22 20:59 Last Admin: 05/24/22 09:34 Dose: 6.25 mg Dextrose (Dextrose 50% 50 Ml Syringe) 25 - 50 ml IV UD PRN; Protocol PRN Reason: Hypoglycemia Protocol Stop: 06/20/22 16:30 Ergocalciferol (Ergocalciferol 50,000 Units 1250 Mcg Cap) 50,000 units PO Q7D DEVONTE Stop: 06/21/22 08:59 Last Admin: 05/22/22 08:44 Dose: 50,000 units Glucagon (Glucagon For Inj 1 Mg Vial) 1 mg SQ UD PRN; Protocol PRN Reason: Hypoglycemia Protocol Stop: 06/20/22 16:30 Glucose (Glucose 40% Gel 15 Gm Tube) 15 - 30 gm PO UD PRN; Protocol PRN Reason: Hypoglycemia Protocol Stop: 06/20/22 16:30 Glucose (Glucose 10 Tab/Tube) 4 - 8 tab PO UD PRN; Protocol PRN Reason: Hypoglycemia Treatment Stop: 06/20/22 16:30 Last Admin: 05/23/22 01:00 Dose: 4 tab Heparin Sodium (Porcine) (Heparin Sod 5,000 Unit/0.5 Ml Vial) 5,000 units SQ Q12 DEVONTE Stop: 06/20/22 20:59 Last Admin: 05/24/22 09:36 Dose: Not Given Vancomycin HCl 1,500 mg/ (Sodium Chloride) 530 mls @ 200 mls/hr IV Q24H DEVONTE; Protocol Stop: 05/28/22 23:59 Last Admin: 05/24/22 10:21 Dose: 200 mls/hr Insulin Aspart (Insulin Aspart Per Unit Charge) 0 units SC ACHS [facility] Stop: 06/20/22 16:59 Last Admin: 05/24/22 12:44 Dose: 10 units Magnesium Hydroxide (Magnesium Hydroxide Susp 30 Ml Udc) 30 ml PO Q12H PRN PRN Reason: Constipation Stop: 06/20/22 14:55 Miscellaneous (Carbohydrates For Hypoglycemia ) 15 - 30 gm PO UD PRN PRN Reason: Hypoglycemia Protocol Stop: 06/20/22 16:30 Last Admin: 05/23/22 00:40 Dose: 30 gm Miscellaneous Information (Pharmacy Glycemic Mgmt Consult) 1 each N/A UD PRN; Protocol PRN Reason: Consult. Pt starr Stop: 06/20/22 16:30 Miscellaneous Information (Vancomycin Consult Active) 1 each N/A UD PRN PRN Reason: Consult Stop: 06/20/22 17:20 Ondansetron HCl (Ondansetron Inj 2 Mg/Ml 2 Ml Vial) 4 mg IV Q6H PRN PRN Reason: Nausea Stop: 06/20/22 14:55 Oxycodone HCl (Oxycodone Hcl Ir 5 Mg Tab (Immediate Release)) 5 mg PO Q6H PRN PRN Reason: Severe Pain (Scale 7, 8, 9,10) Stop: 06/06/22 13:51 Last Admin: 05/24/22 06:40 Dose: 5 mg Pantoprazole Sodium (Pantoprazole 40 Mg Tab) 40 mg PO QAM [facility] Stop: 06/23/22 08:59 Last Admin: 05/24/22 10:21 Dose: 40 mg Polyethylene Glycol (Polyethylene (Miralax) 17 Gm Pack) 17 gm PO DAILY PRN PRN Reason: Constipation Stop: 06/20/22 14:55 Prasugrel (Prasugrel Tab 10 Mg Tab) 10 mg PO DAILY [facility] Stop: 06/21/22 08:59 Last Admin: 05/24/22 09:35 Dose: 10 mg
[2022-05-24] MEDS ORDERED: LANTUS PER UNIT CHARGE SQ ONE (16:30)
[2022-05-25] MEDS: oxyCODONE HCL IR 5 MG TAB (IMMEDIATE RELEASE) PO PRN (05:57)
[2022-05-25 06:24] LABS: Hematocrit (blood only) 23.7 % (42.0-52.0); Hemoglobin 7.6 g/dl (14.0-18.0); Mean Corpuscular Hgb Conc 32.1 g/dL (32.0-36.0); Platelet Count 278 K/uL (130-400); RDW Coefficient of Variation 15.6 % (11.5-14.5); RDW Standard Deviation 44.5 fL (36.4-46.3); Red Blood Count 3.04 M/uL (4.70-6.10); White Blood Count 14.71 K/ul (4.8-10.8)
[2022-05-25 06:39] LABS: C Reactive Protein 14.07 mg/dl (0-0.5); Calcium 7.6 mg/dl (8.6-10.3); Creatinine Clr Calc Pharmacy 61.8 ml/min; Est GFR (African American) 57.2 ml/min; Est GFR (Non-African American) 49.4 ml/min; Potassium 3.8 mmol/L (3.5-5.1)
[2022-05-25] MEDS: ASPIRIN 81 MG ECTAB PO SCH (08:29)
[2022-05-25] MEDS: carvediloL 6.25 MG TAB PO SCH (08:30)
[2022-05-25] MEDS: PANTOprazole 40 MG TAB PO SCH (08:30)
[2022-05-25] MEDS: HEPARIN SOD 5,000 UNIT/0.5 ML VIAL SQ SCH ×2 (08:31→08:32)
[2022-05-25] MEDS: PRASugrel TAB 10 MG TAB PO SCH (08:32)
[2022-05-25] MEDS: INSULIN ASPART PER UNIT CHARGE SC SCH ×2 (08:33→12:13)
[2022-05-25] MEDS: VANCOMYCIN HCL 1,500 MG in SODIUM CHLORIDE 0.9% 500 ML IV SCH (09:15)
--- NOTE | 2022-05-25 10:49 | Discharge Summary ---
Date of Service May 25, 2022 Admission HPI Per Admitting Provider Mr. Allison is a 56 year old male that presented to the [facility] after recommendations from [facility] for further evaluation of recurrent right lower leg infection that has been worsening over the past 5 days despite Advil use and elevation. Rocephin 1 G given at urgent care. Patient leg with + pain and tenderness with induration and weeping. Numerous areas of skin sloughing. Plantar aspect with thick yellow bullae. (-) crepitus. (+) skin sloughing and ulcers from ankle to foot. Was previously diagnosed with cellulitis in 02/08 and completed antibiotics course. Patient is visiting [place] from [place] where he lives permanently with his . Patient did grow up in [place] and was here visiting his [id number] for his 89th birthday when he started to have fever and chills over the past few days along with increased pain with ambulation in his right lower extremity. Patient has a PMH that includes: IDDM2, HLD, and HTN. On arrival to ED, patient was hypotensive and responded to 2.5 LNSB. Leukocytosis WBC 20.86, Hgb 9.4, Na+ 131, Creatinine 2.36. Right Foot CT and lower extremity CT were performed in the ED to assess for necrotizing fasciitis. Results indicate: 1. No acute bony abnormality is identified. 2. Soft tissue edema throughout the visualized right lower extremity is typical for cellulitis. 3. No organized fluid collection is seen to indicate abscess. 4. No soft tissue gas is seen. No osteomyelitis. Patient will be admitted for further evaluation and management. Please see A/P for further details. Admission Exam Per Admitting Provider Neuro: AAOx4, PERRLA, no aphagia, memory changes, CNII-XII grossly intact HEENT: head normocephalic, moist mucus membranes CV: S1/S2, (-) M/G/R, (-) edema, cap refill < 3 seconds Resp: Lungs CTA in all kitchen. On RA GI: Abdomen S/NT/ND, Ax4 bowel sounds, (-) CVA tenderness Musculoskeletal: 5/5 B/L UE strength, 5/5 B/L LE strength. No gait disturbance Skin: (+) induration and weeping RLE. Plantar aspect with thick yellow bullae. (-) crepitus. (+) skin sloughing and culcers from ankle to foot Psych: euthymic mood Principal Diagnosis Cellulitis right foot, diabetic foot infection, type 1 diabetes Discharge Exam General: Lying comfortably in bed, not in acute distress, on room air HEENT: DESTIN, MMM Chest: Clear breath sounds bilaterally, no wheezes or crackles CVS: Regular rate and rhythm, normal heart sounds, no murmur Abdomen: Soft, non tender, not distended, normal bowel sounds Neuro: Awake, alert, oriented, conversing well, non focal Extremities: Rt foot wound noted with seeping, dusky 4th toe- prior images from admission reviewed. Discharge Data Allergies Allergy/AdvReac Type Severity Reaction Status Date / Time atorvastatin AdvReac Unknown CONTRAINDICATED Verified 05/21/22 14:27 WITH OTHER MEDICATION empagliflozin AdvReac Unknown CONTRAINDICATED Verified 05/21/22 14:27 [From Jardiance] FOR TYPE I DIABETICS Consultations 05/21/22 14:04 ED Decision to Admit Stat 05/21/22 15:02 Consult Orthopedic Surgery Routine 05/21/22 16:17 Consult Infectious Diseases Routine Laboratory Results WBC 14.71 K/ul (4.8-10.8) H 05/25/22 05:31 RBC 3.04 M/uL (4.70-6.10) L 05/25/22 05:31 Hgb 7.6 g/dl (14.0-18.0) L 05/25/22 05:31 Hct 23.7 % (42.0-52.0) L 05/25/22 05:31 MCV 78.0 fL (80.0-100.0) L 05/25/22 05:31 MCH 25.0 pg (25.0-34.0) 05/25/22 05:31 MCHC 32.1 g/dL (32.0-36.0) 05/25/22 05:31 RDW Std Deviation 44.5 fL (36.4-46.3) 05/25/22 05:31 RDW Coeff of Bianca 15.6 % (11.5-14.5) H 05/25/22 05:31 Plt Count 278 K/uL (130-400) 05/25/22 05:31 MPV 10.0 fL (9.4-12.4) 05/25/22 05:31 Immature Gran % (Auto) 1.3 % 05/21/22 11:43 Neut % (Auto) 93.2 % 05/21/22 11:43 Lymph % (Auto) 2.0 % 05/21/22 11:43 [place] % (Auto) 3.2 % 05/21/22 11:43 Eos % (Auto) 0.1 % 05/21/22 11:43 Baso % (Auto) 0.2 % 05/21/22 11:43 Neut # (Auto) 19.45 K/uL (1.40-6.50) H 05/21/22 11:43 Lymph # (Auto) 0.41 K/uL (1.2-3.4) L 05/21/22 11:43 [place] # (Auto) 0.66 K/uL (0.11-0.59) H 05/21/22 11:43 Eos # (Auto) 0.02 K/uL (0-0.50) 05/21/22 11:43 Baso # (Auto) 0.05 K/uL (0-0.2) 05/21/22 11:43 Immature Gran # (Auto) 0.27 K/uL (0.01-0.20) H 05/21/22 11:43 Toxic Granulation 1+ 05/21/22 11:43 Dohle Bodies 1+ 05/21/22 11:43 Acanthocytes (Spur) 1+ 05/21/22 11:43 ESR 64 mm/hr (0-20) H 05/25/22 05:31 PT 12.8 Seconds (9.0-12.0) H 05/21/22 11:43 INR 1.2 (0.9-1.1) H 05/21/22 11:43 APTT 29.3 Seconds (21.0-31.0) 05/21/22 11:43 PTT Ratio 1.1 05/21/22 11:43 VBG pH 7.38 (7.36-7.41) 05/21/22 12:12 VBG pCO2 38 mmHg (38-50) 05/21/22 12:12 VBG pO2 21 mmHg 05/21/22 12:12 VBG HCO3 23 mmol/L 05/21/22 12:12 VBG O2 Saturation < 60.0 % 05/21/22 12:12 VBG Base Excess -2.4 mEq/L 05/21/22 12:12 Sodium 129 mmol/L (136-145) L 05/25/22 05:31 Potassium 3.8 mmol/L (3.5-5.1) 05/25/22 05:31 Chloride 102 mmol/L (98-107) 05/25/22 05:31 Carbon Dioxide 19 mmol/L (21-32) L 05/25/22 05:31 Anion Gap 8 (3-11) 05/25/22 05:31 BUN 40 mg/dl (6-23) H 05/25/22 05:31 Creatinine 1.54 mg/dl (0.6-1.4) H 05/25/22 05:31 Est Cr Clr Drug Dosing 61.8 ml/min 05/25/22 05:31 Est GFR ( Amer) 57.2 ml/min 05/25/22 05:31 Est GFR (Non-Af Amer) 49.4 ml/min 05/25/22 05:31 BUN/Creatinine Ratio 26.0 (10-20) H 05/25/22 05:31 Glucose 187 mg/dl (70-99(Fasting)) H 05/25/22 05:31 POC Glucose 216 mg/dl (70-99) H 05/25/22 07:43 Estimat Average Glucose 246 mg/dl 05/22/22 05:35 Hemoglobin A1c 10.2 % (4.5-5.6) H 05/22/22 05:35 Lactate 1.5 mmol/L (0.4-2.0) 05/21/22 15:20 Uric Acid 8.1 mg/dl (2.6-7.2) H 05/21/22 11:43 Calcium 7.6 mg/dl (8.6-10.3) L 05/25/22 05:31 Magnesium 1.8 mg/dl (1.7-2.4) 05/24/22 05:29 Total Bilirubin 0.4 mg/dl (0.2-1.0) 05/22/22 05:35 Direct Bilirubin 0.3 mg/dl (0-0.2) H 05/21/22 11:43 AST 27 U/L (13-39) 05/22/22 05:35 ALT 50 U/L (7-52) 05/22/22 05:35 Alkaline Phosphatase 265 U/L (34-104) H 05/22/22 05:35 Troponin I High Sens 20.7 pg/ml (0-20) H D 05/21/22 15:20 C-Reactive Protein 14.07 mg/dl (0-0.5) H 05/25/22 05:31 Total Protein 6.0 gm/dl (6.0-8.3) 05/22/22 05:35 Albumin 2.3 gm/dl (3.4-5.0) L 05/22/22 05:35 Globulin 3.7 gm/dl (2.5-4.0) 05/22/22 05:35 Albumin/Globulin Ratio 0.6 (0.9-2) L 05/22/22 05:35 Procalcitonin 4.59 ng/ml (0-0.5) H 05/21/22 11:43 Urine Color Dark Yellow 05/22/22 20:50 Urine Appearance Cloudy (Clear) A 05/22/22 20:50 Urine pH 5.5 (4.5-7.5) 05/22/22 20:50 Ur Specific [place] 1.022 (1.000-1.030) 05/22/22 20:50 Urine Protein 1+ (Negative) H 05/22/22 20:50 Urine Glucose (UA) Trace (Negative) H 05/22/22 20:50 Urine Ketones Trace (Negative) H 05/22/22 20:50 Urine Blood 1+ (Negative) H 05/22/22 20:50 Urine Nitrite Negative (Negative) 05/22/22 20:50 Urine Bilirubin Negative (Negative) 05/22/22 20:50 Urine Urobilinogen Negative (Negative) 05/22/22 20:50 Ur Leukocyte Esterase Trace (Negative) H 05/22/22 20:50 Urine WBC (Auto) 10-30 /hpf (0-5) H 05/22/22 20:50 Urine RBC (Auto) 0-4 /hpf (0-4) 05/22/22 20:50 U Hyaline Cast (Auto) 1-5 /lpf (0-5) 05/22/22 20:50 U Epithel Cells (Auto) >30 /lpf (0-5) H 05/22/22 20:50 Urine Bacteria (Auto) Negative (Negative) 05/22/22 20:50 Ur Renal Epithelial Cell Not Reportable 05/22/22 20:50 Granular Casts 1-5 /lpf (0) H 05/22/22 20:50 Urine Yeast Present (None Prsent) A 05/22/22 20:50 Random Vancomycin 15.9 mcg/ml (10-20) 05/25/22 05:31 SARS-CoV-2 (PCR) NEGATIVE (Negative) 05/21/22 12:52 Influenza Type A (PCR) Negative (Neg) 05/21/22 12:52 Influenza Type B (PCR) Negative (Neg) 05/21/22 12:52 RSV (RT-PCR) Negative (Neg) 05/21/22 12:52 Blood Type B Positive 05/21/22 12:12 Antibody Screen NEGATIVE 05/21/22 12:12 Impressions Chest X-Ray 05/21/22 11:56 XR chest 1V portable CLINICAL HISTORY: Sepsis. COMPARISON STUDY: No previous studies for comparison. FINDINGS: There is no pneumothorax or pleural effusion. There is no consolidation to suggest pneumonia. Moderate cardiomegaly is noted. No evidence for pulmonary edema. IMPRESSION: No acute cardiopulmonary findings. Cardiomegaly. ACT 112: Negative or not required by law. Electronically signed by: Matthew Conley M.D. 05/21/2022 1:[address] 05/21/22 12:04 CT foot RT wo con HISTORY: 56 years-old Male Sepsis, infected RLE acute sepsis with pain of the right lower extremity COMPARISON: CT right ankle, tibia and fibula studies of same day TECHNIQUE: Multiple axial CT images of the right foot were obtained without the use of IV contrast. A dose lowering technique was used consistent with the principals of ALARA. FINDINGS: Moderate diffuse subcutaneous edema. Arterial calcifications. There is at least mild atrophy of the intrinsic musculature. Tendons and ligaments are suboptimally evaluated by CT technique. No gross ligamentous or tendinous injury identified. No drainable fluid collection. Enthesophytes of the calcaneus. Demineralized appearance of the bones. No acute fracture, dislocation or osseous erosion. The distal toes only partially imaged on the axial series. Multifocal osteoarthritis, moderate within the midfoot. Midfoot alignment is anatomic. IMPRESSION: 1. No acute osseous abnormality. 2. Moderate diffuse subcutaneous edema without drainable fluid collection. Findings may represent cellulitis, lymphedema or venous stasis. ACT 112: Negative or not required by law. The above report was generated using voice recognition software. It may contain grammatical, syntax or spelling errors. Electronically signed by: Iván Ochoa M.D. 05/21/2022 2:[address] 05/21/22 12:05 CT OF THE RIGHT TIBIA AND FIBULA WITHOUT CONTRAST CLINICAL HISTORY: Sepsis, infected RLE. COMPARISON STUDY: No previous studies for comparison. TECHNIQUE: Axial images of the right tibia and fibula/right lower leg were obtained without IV contrast. Sagittal and coronal reconstructions were viewed. Automated exposure control was utilized for the study. A dose lowering technique was utilized adhering to the principles of ALARA. FINDINGS: Please note that the CTs of the right ankle and foot will be reported separately. There is no fracture within the right tibia or fibula. No CT evidence for acute osteomyelitis. Note is made of skin thickening and subcutaneous edema of the right lower leg, most pronounced medially. No associated fluid collection is identified on this unenhanced exam. No soft tissue gas. There is no significant fascial fluid. No intramuscular fluid collection is identified on unenhanced exam. There is extensive vascular calcification within the right calf vessels. There is no right knee joint effusion. IMPRESSION: 1. Skin thickening and subcutaneous fluid of the right lower leg suggestive of cellulitis. No fluid collection on unenhanced exam to suggest abscess. 2. No soft tissue gas. No evidence for acute osteomyelitis within the right tibia or fibula. ACT 112: Negative or not required by law. Electronically signed by: Matthew Conley M.D. 05/21/2022 1:32 PM Ordered Studies 05/21/22 12:04 CT ankle RT wo con Stat CT foot RT wo con Stat 05/21/22 12:05 CT tib/fib RT wo con Stat Diabetes Follow up Diabetes Follow-up Needed for HgbA1c >9% Hospital Course (1) Sepsis: (2) Cellulitis: (3) Hx of heart artery stent: (4) Type 1 diabetes mellitus: (5) HLD (hyperlipidemia): (6) Hypertension: Plan 56 y/o with complex unresolved cellulitis; complicated with delayed wound healing with T1DM. Initial cellulitis dx 12/22 and completed oral abx course. Right foot CT and lower extremity CT: *1. No acute bony abnormality is identified. *2. Soft tissue edema throughout the visualized right lower extremity is typical for cellulitis. *3. No organized fluid collection is seen to indicate abscess. *4. No soft tissue gas is seen. No osteomyelitis. Started on empiric IV Vanc/cefepime with improvement and later transitioned to vancomycin per ID recommendation. Ortho did not recommend any surgical intervention. Continues to improve biochemically and clinically. WBC, ESR, CRP trending down. RAMON resolved. I feel he will still need IV antibiotics at this point but patient is adamant to leave [place] and go back to [place] due to personal issues. I counseled him the risks and he is willing. Recommended he go back to ED down there as soon as possible to get IV antibiotics. His last dose of Vanco was this morning just prior to discharge. I spoke to Dr Varghese from infectious disease and he recommended doxy and augmentin for now but that oral antibiotic might fail; and patient is aware but still willing to take his chances. AMA paperwork completed. Meds sent to his pharmacy to pickup driver. Also prescribing 5 pills of oxycodone for pain control until he sees his doctors down there. Recommended against NSAIDs and okay to take tylenol if needed for pain control. Also recommended holding losartan given his well controlled BP off of it and his recovering renal function. Follow up with his PCP to determine when he can resume. All questions were answered at bedside. Severe Sepsis POA: Cellulitis of the right lower leg with multiple ulcerated areas/Diabetic foot infection In ED hypotensive and responded to 2.5 LNSB. Leukocytosis WBC 20.86, Na+ 131, Creatinine 2.36. unknown baseline. Right Foot CT and lower extremity CT: *1. No acute bony abnormality is identified. *2. Soft tissue edema throughout the visualized right lower extremity is typical for cellulitis. *3. No organized fluid collection is seen to indicate abscess. *4. No soft tissue gas is seen. No osteomyelitis. Doppler documented presence of dorsalis pedis and tibialis posterior arteries pulsations Started on cefepime and vancomycin with improvement Ortho did not recommend any intervention as of now Seen by ID. Initially on Vanc/cefepime -->transitioned to vanc only on 05/23 and continues to improve. WBC, CRP, ESR trending down. Still will need IV antibiotic s but patient leaving AMA and hence sending on doxy and augmentin after discussion with ID but strongly recommended to go to ED at his hometown immediately upon arrival for IV antibiotics and admission. Patient is aware. Blood cultures negative Clinically improving, continuing Vanc for now- will reach out to ID for further antibiotic recommendation tomorrow as patient is planning to leave due to personal issues- recheck labs in am Discharging also on 5 pills of oxycodone for pain control. PDMP reviewed. RAMON secondary to Sepsis: Resolved. Creatinine 2.36-> 1.81->1.68->1.56 Avoid nephroxics and NSAIDs Hyponatremia: stable at 130. CAD s/p stent placement: stent placement x2 in 11/2021 in [place] takes baby ASA and Prasugrel; continue Uncontrolled Diabetes Mellitus, type 1 with peripheral neuropathy: A1C 10.2 Continue home insulin Recommend better control of BG for wound healing- follow up with PCP for same HTN: Hypotensive in ED but BP now stable at 110s only on carvedilol; other meds were held d/t RAMON and hypotension. Recommend holding his other home meds at discharge except for carvedilol and follow up with PCP to determine when he can resume. Total Time Total Time Spent Total Time Spent (In Minutes): 40 Discharge Plan Discharge Items Patient Disposition: Against Medical Advice Reason For Visit: CELLULITOUS IN LEG Condition on Discharge: Fair Activity: Per Instructions section Non-emergency contact: Primary Care Provider Follow-up/Referrals: Melany Sidhu MD [Primary Care Provider] - Add Slagger Provider Instructions: We recommend you to stay for continued IV antibiotics but you did not want to stay at all. We recommend you to go back to the Emergency at your hometown immediately for admission and IV antibiotics until it is safe to change to oral antibiotics. I have given you few pills of oral antibiotics and pain medication just in case however you are aware that oral antibiotics can fail, hence recommended for more IV antibiotics at this time. Recommend better control of your diabetes and wound care. Follow up with your family doctor. Pending Studies at Discharge: No Stand-Alone Forms: [employer], Smoking Cessation Skilled Items Discharge Prognosis: Improving Medications and DC Order Prescriptions: New oxycodone 5 mg Tablet 5 mg PO Q6H PRN (Reason: pain) 2 Days Qty: 5 0RF doxycycline hyclate 100 mg tablet 100 mg PO BID 5 Days Qty: 10 0RF amoxicillin-pot clavulanate 875-125 mg tablet 1 tab PO Q12H Qty: 10 0RF Continued losartan 50 mg tablet 50 mg PO DAILY carvedilol 3.125 mg tablet 6.25 mg PO BID prasugrel 10 mg tablet 10 mg PO DAILY Entresto 49-51 mg tablet 1 tab PO DAILY albuterol sulfate 2.5 mg /3 mL (0.083 %) solution for nebulization 2.5 mg inhalation Q4H PRN (Reason: Wheezing) aspirin 81 mg Tablet,Delayed Release (Dr/Ec) 81 mg PO DAILY nitroglycerin 0.4 mg tablet, sublingual 0.4 mg sublingual DIRECTED PRN (Reason: Chest Pain) ergocalciferol (vitamin D2) 1,250 mcg (50,000 unit) capsule 50,000 unit PO WK albuterol sulfate 90 mcg/actuation Hfa Aerosol Inhaler 2 puff INHALATION DIRECTED PRN (Reason: Shortness Of Breath Or Wheezing) insulin aspart U-100 [Novolog FlexPen U-100 Insulin] 100 unit/mL (3 mL) Insulin Pen 6 - 9 unit SUBCUT TIDM insulin glargine [Basaglar KwikPen U-100 Insulin] 100 unit/mL (3 mL) Insulin Pen 21 unit SUBCUT PM Discontinued doxycycline hyclate 100 mg capsule 100 mg PO DAILY Discharge Orders: Left Against Medical Advice (Routine); Ordered 05/25/22 Ordered By: Geovanny Elder/Other Patient Handouts: Managing Type 1 Diabetes, Special Foot Care for Diabetes Admission Data Admit Date/Time: 05/21/22 14:56 Attending Provider: Geovanny Bedoya Admit Provider: Deanne Yang Primary Care Provider: Melany Sidhu Other Providers: Todd Ya ; Raúl Ga ; Eric Varghese ; Kevin Sanford I. ; Chris Mcdaniel II ; Ana Alejandre ; Jon Croft ; Braeden Early ; Vinny Raymundo ; Deanne Yang
[2022-05-25] MEDS ORDERED: LANTUS PER UNIT CHARGE SQ SCH (16:30)
--- NOTE | 2022-06-06 10:59 | Coding Query ---
Uncontrolled Diabetes meaning hyperglycemia CODING QUERY FOR UNCONTROLLED DIABETES To promote full compliance with coding requirements relating to patient care, provider participation is requested in all cases of [employer] uncertainty. Please assist us with the question(s) below: Coding Question: The term uncontrolled Diabetes was used throughout the record. To be able to code this diagnosis properly, could you please clarify the diagnosis below: ( ) Uncontrolled Diabetes meaning hypoglycemia ( x ) Uncontrolled Diabetes meaning hyperglycemia ( ) Other (please specify) Principal Diagnosis: "that condition established after study, to be chiefly responsible for occasioning the admission of the patient to the hospital for care." Co-Existing Principal Diagnosis: "when two or more diagnoses equally meet the criteria for principal diagnosis as determined by the circumstances of admission, diagnostic work up, and/or therapy provided, and the Alphabetic Index, Tabular List, or another coding guideline does not provide sequencing direction, any one of the diagnoses may be sequenced first." "When the physician has documented what appears to be a current diagnosis in the body of the record, but has not included the diagnosis in the final diagnostic statement, the physician should be asked whether the diagnosis should be added." (Source Coding [facility] 2 QTR90. p3-4) [place]
== END 2022-05-25 13:34 | disposition left against medical advice (07) | DRG 871 ==
LOC: ED 11:15 → 4W 14:56 → SUATTDRO 14:56 → 4W 16:13
DX: E10.65 Type 1 diabetes mellitus with hyperglycemia; N17.9 Acute kidney failure, unspecified; Z88.8 Allergy status to other drugs, medicaments and biological substances; L03.115 Cellulitis of right lower limb; I10 Essential (primary) hypertension; E87.1 Hypo-osmolality and hyponatremia; E10.42 Type 1 diabetes mellitus with diabetic polyneuropathy; I25.10 Atherosclerotic heart disease of native coronary artery without angina pectoris; Z86.19 Personal history of other infectious and parasitic diseases; Z53.29 Procedure and treatment not carried out because of patient's decision for other reasons; Z95.5 Presence of coronary angioplasty implant and graft; Z79.82 Long term (current) use of aspirin; Z79.01 Long term (current) use of anticoagulants; A41.9 Sepsis, unspecified organism; E78.5 Hyperlipidemia, unspecified; Z79.4 Long term (current) use of insulin; Z79.899 Other long term (current) drug therapy; I21.A1 Myocardial infarction type 2; E10.628 Type 1 diabetes mellitus with other skin complications